=== PATIENT | male | born 1970 | race Caucasian/White ===

== ENCOUNTER 2022-07-01 06:33 | Day surgery (SDC) | payer BC ==
[2022-06-29 10:36] LABS: SARS-CoV-2 Antigen Rapid Res Negative (Negative)
[2022-07-01] MEDS ORDERED: Ringers Lactate 1,000 ML IV ONE (06:59)
[2022-07-01] MEDS ORDERED: EPINEPHRINE/PF 1 MG/ML AMP ONE (07:09)
[2022-07-01 07:18] VITALS: O2SAT 100
[2022-07-01] MEDS ORDERED: LIDOCAINE 1% MPF 5 ML VIAL ONE (07:26)
[2022-07-01] MEDS ORDERED: propofoL 200 MG/20 ML VIAL IV ONE (07:26)
[2022-07-01] MEDS ORDERED: MIDAZOLAM HCL 2 MG/2 ML INJ ONE (08:03)
--- NOTE | 2022-07-01 08:09 | ENDO RPT ---
[address], [address] EGD PROCEDURE REPORT EXAM DATE: 07/01/2022 PATIENT NAME: Les Heaton MR#: [id number] BIRTHDATE: 1970 ATTENDING: Lobo Stahl Dr STATUS: outpatient CASINO CHANGE ATTENDANT: Geovanna Wright RN and Jayne Wright INDICATIONS: The patient is a 51 yr old Male here for an EGD due to iron deficiency anemia and GERD PROCEDURE PERFORMED: EGD with biopsy MEDICATIONS: Per Anesthesia. TOPICAL ANESTHETIC: none CONSENT: The patient understands the risks and benefits of the procedure and understands that these risks include, but are not limited to: sedation, allergic reaction, infection, perforation and/or bleeding. Alternative means of evaluation and treatment include, among others: physical exam, x-rays, and/or surgical intervention. The patient elects to proceed with this endoscopic procedure. DESCRIPTION OF PROCEDURE: During intra-op preparation period all mechanical medical equipment was checked for proper function. Hand hygiene and appropriate measures for infection prevention was taken. Procedure, possible complications, and alternatives including but not limited to the possibility of bleeding, perforation, tear, infection, sepsis, need for surgery, need for blood transfusion, and anesthesia related complications were explained to the patient. After the risks, benefits and alternatives of the procedure were thoroughly explained, Informed consent was verified, confirmed and timeout was successfully executed by the treatment team. The patient was placed in the left lateral position. The patient was anesthetized with topical anesthesia. Through the anesthetized oropharyngeal area, the scope was passed without any difficulty. The EC-3890Li ([id number]) and Pentax EG-2990i ([id number]) endoscope was introduced through the mouth and advanced to the third portion of the duodenum. Retroflexed views revealed a moderate sized hiatal hernia. The gastroscope was then slowly withdrawn and removed. A moderate sized hiatal hernia was found. Mild gastritis was found in the antrum. Multiple biopsies were obtained and sent to pathology. Small bowel biopsies obtained with history of iron deficiency anemia. ADVERSE EVENTS: There were no complications. IMPRESSIONS: 1. Moderate sized hiatal hernia 2. Mild gastritis in the antrum, s/p biopsies 3. Small bowel biopsies obtained with history of iron deficiency anemia RECOMMENDATIONS: 1. await biopsy results 2. acid suppression therapy REPEAT EXAM: Lobo Stahl Dr eSigned: Lobo Stahl Dr 07/01/2022 8:08 AM cc: CPT CODES: ICD9 CODES: PATIENT NAME: Les Heaton MR#: [id number]
--- NOTE | 2022-07-01 09:16 | ENDO RPT ---
[address], [address] COLONOSCOPY PROCEDURE REPORT EXAM DATE: 07/01/2022 PATIENT NAME: Les Heaton MR #: [id number] BIRTHDATE: 1970 ATTENDING: Lobo Stahl Dr STATUS: outpatient OIL PROCESS STILLMAN: Geovanna Wright RN and Jayne Wright INDICATIONS: The patient is a 51 yr old Male here for a colonoscopy due to hematochezia and iron deficiency anemia PROCEDURE PERFORMED: Colonoscopy with snare polypectomy and Colon w/ endoclip MEDICATIONS: Per Anesthesia. ESTIMATED BLOOD LOSS: None CONSENT: The patient understands the risks and benefits of the procedure and understands that these risks include, but are not limited to: sedation, allergic reaction, infection, perforation and/or bleeding. Alternative means of evaluation and treatment include, among others: physical exam, x-rays, and/or surgical intervention. The patient elects to proceed with this endoscopic procedure. DESCRIPTION OF PROCEDURE: During intra-op preparation period all mechanical medical equipment was checked for proper function. Hand hygiene and appropriate measures for infection prevention was taken. Procedure, possible complications, alternatives including, but not limited to possibility of bleeding, perforation, tear, infection, sepsis, need for surgery, need for blood transfusion, were explained to the patient. After the risks, benefits and alternatives of the procedure were thoroughly explained, Informed consent was verified, confirmed and timeout was successfully executed by the treatment team. The patient was placed in the left lateral position. A digital rectal exam was performed and revealed no abnormalities of the perianal region. After appropriate level of anesthesia, the scope was passed. The EC-3890Li ([id number]) and EG-2990i ([id number]) endoscope was introduced through the anus and advanced to the terminal ileum which was intubated for a short distance. The quality of the prep was good. The instrument was then slowly withdrawn as the colon was fully examined. Scope withdrawal time was 12 minutes. COLON FINDINGS: A half circumferential fungating mass, measuring 4.0 X 1.5 cm in size, was found in the descending colon. Multiple biopsies of the lesion were performed using cold forceps. A pedunculated polyp measuring 1.2 cm in size with a friable surface was found in the sigmoid colon. A polypectomy was performed using snare cautery. A fungating pedunculated polyp measuring 2.0 cm in size was found in the rectum. A polypectomy was performed using snare cautery. The wound at the site was closed by placing hemoclips. One (1) placement was made. One (1) placement was made. A sessile polyp measuring 8 mm in size with a friable surface was found in the rectum. A polypectomy was performed using snare cautery. Mild diverticulosis was noted throughout the entire examined colon. No bleeding was noted from the diverticulosis. Small internal hemorrhoids were found. Retroflexed views revealed small hemorrhoids. The scope was then completely withdrawn from the patient and the procedure terminated. ADVERSE EVENTS: There were no complications. IMPRESSIONS: 1. Half circumferential mass, measuring 4.0 X 1.5 cm in size, in the descending colon; multiple biopsies of the lesion 2. Pedunculated polyp measuring 1.2 cm in size in the sigmoid colon; polypectomy was performed using snare cautery 3. Pedunculated polyp measuring 2.0 cm in size in the rectum; polypectomy was performed using snare cautery; the wound at the site was closed by placing hemoclips 4. 8 mm sessile polyp in the rectum; polypectomy was performed using snare cautery 5. Mild diverticulosis throughout the entire examined colon 6. Small internal hemorrhoids 7. Intubation to terminal ileum RECOMMENDATIONS: 1. await biopsy results 2. avoid NSAIDS for 2 weeks RECALL: Return in 1 year(s) for Colonoscopy. Lobo Stahl Dr eSigned: Lobo Stahl Dr 07/01/2022 9:16 AM cc: CPT CODES: ICD9 CODES: 1. 239.0 Neoplasm of unspecified nature of digestive system 2. 211.3 Benign neoplasm of colon 3. 569.0 Anal and rectal polyp PATIENT NAME: Les Heaton MR#: [id number]
--- NOTE | 2022-07-01 09:23 | ENDO RPT ---
[address], [address] COLONOSCOPY PROCEDURE REPORT EXAM DATE: 07/01/2022 PATIENT NAME: Lse Heaton MR #: [id number] BIRTHDATE: 1970 ATTENDING: Lobo Stahl Dr STATUS: outpatient UNISAW OPERATOR: Geovanna Wright RN and Jayne Wright INDICATIONS: The patient is a 51 yr old Male here for a colonoscopy due to hematochezia and iron deficiency anemia PROCEDURE PERFORMED: Colonoscopy with snare polypectomy and Colon w/ endoclip MEDICATIONS: Per Anesthesia. ESTIMATED BLOOD LOSS: None CONSENT: The patient understands the risks and benefits of the procedure and understands that these risks include, but are not limited to: sedation, allergic reaction, infection, perforation and/or bleeding. Alternative means of evaluation and treatment include, among others: physical exam, x-rays, and/or surgical intervention. The patient elects to proceed with this endoscopic procedure. DESCRIPTION OF PROCEDURE: During intra-op preparation period all mechanical medical equipment was checked for proper function. Hand hygiene and appropriate measures for infection prevention was taken. Procedure, possible complications, alternatives including, but not limited to possibility of bleeding, perforation, tear, infection, sepsis, need for surgery, need for blood transfusion, were explained to the patient. After the risks, benefits and alternatives of the procedure were thoroughly explained, Informed consent was verified, confirmed and timeout was successfully executed by the treatment team. The patient was placed in the left lateral position. A digital rectal exam was performed and revealed no abnormalities of the perianal region. After appropriate level of anesthesia, the scope was passed. The EC-3890Li ([id number]) and EG-2990i ([id number]) endoscope was introduced through the anus and advanced to the terminal ileum which was intubated for a short distance. The quality of the prep was good. The instrument was then slowly withdrawn as the colon was fully examined. Scope withdrawal time was 12 minutes. COLON FINDINGS: A half circumferential fungating mass, measuring 4.0 X 1.5 cm in size, was found in the descending colon. Multiple biopsies of the lesion were performed using cold forceps. A pedunculated polyp measuring 1.2 cm in size with a friable surface was found in the sigmoid colon. A polypectomy was performed using snare cautery. A fungating pedunculated polyp measuring 2.0 cm in size was found in the rectum. A polypectomy was performed using snare cautery. The wound at the site was closed by placing hemoclips. One (1) placement was made. One (1) placement was made. A sessile polyp measuring 8 mm in size with a friable surface was found in the rectum. A polypectomy was performed using snare cautery. Mild diverticulosis was noted throughout the entire examined colon. No bleeding was noted from the diverticulosis. Small internal hemorrhoids were found. Retroflexed views revealed small hemorrhoids. The scope was then completely withdrawn from the patient and the procedure terminated. ADVERSE EVENTS: There were no complications. IMPRESSIONS: 1. Half circumferential mass, measuring 4.0 X 1.5 cm in size, in the descending colon; multiple biopsies of the lesion 2. Pedunculated polyp measuring 1.2 cm in size in the sigmoid colon; polypectomy was performed using snare cautery 3. Pedunculated polyp measuring 2.0 cm in size in the rectum; polypectomy was performed using snare cautery; the wound at the site was closed by placing hemoclips 4. 8 mm sessile polyp in the rectum; polypectomy was performed using snare cautery 5. Mild diverticulosis throughout the entire examined colon 6. Small internal hemorrhoids 7. Intubation to terminal ileum RECOMMENDATIONS: 1. await biopsy results 2. avoid NSAIDS for [address] chest/abdomen/pelvis 4. CEA level RECALL: Return in 1 year(s) for Colonoscopy. Lobo Stahl Dr eSigned: Lobo Stahl Dr 07/01/2022 9:22 AM Revised: 07/01/2022 9:22 AM cc: CPT CODES: ICD9 CODES: 1. 239.0 Neoplasm of unspecified nature of digestive system 2. 211.3 Benign neoplasm of colon 3. 569.0 Anal and rectal polyp PATIENT NAME: Les Heaton MR#: [id number]
[2022-07-01 09:39] VITALS: BP 111/83; TEMP 97.4
--- NOTE | 2022-07-01 14:30 | RAD REPORT ---
EXAM DESCRIPTION: CT - Chest Abdomen Pelvis W Cont - 07/01/2022 10:54 am CLINICAL HISTORY: post colonoscopy, mass found on colonoscopy COMPARISON: No comparisons TECHNIQUE: Following dynamic enhancement using 100 milliliters nonionic IV contrast, axial imaging o f the chest, abdomen and pelvis was performed. Biphasic technique was utilized through the abdomen. Additional 10 minute delayed imaging through the abdomen performed. Oral contrast was administered. All CT scans are performed using dose optimization technique as appropriate and may include automated exposure control or mA/KV adjustment according to patient size. FINDINGS: A 2 mm calcified granuloma seen in the anterior apex of no clinical concern. There is a 5 mm date noncalcified juxtapleural nodule along the anterior aspect of the minor fissure (series 5, im age 37). An additional 5 mm vague noncalcified nodule is seen in the lateral right lower lobe (series 5, image 40) No pleural effusion, pleural thickening or pneumothorax. No significant aortic or pulmonary arterial tree finding. Mediastinal and hilar regions show no mass or abnormal lymphadenopathy. No chest wall m ass or axillary lymphadenopathy. Degenerative and scoliotic changes are present in the spine. No lyti c or blastic thoracic vertebral body or rib lesion identified. The liver, spleen and pancreas show no suspicious findings. Gallbladder and biliary tree are unremark able. Gallstones can be occult on CT imaging. In the anterior mid and lower pole of the left kidney there is a 5.5 centimeter diameter heterogeneou s Godwin enhancing solid mass. Remainder of the left kidney shows a normal cortical and medullary enhanc ement pattern that is symmetric with the right kidney. No contralateral right renal mass. There is no hydronephrosis. No left renal vein thrombus present. There is no abnormal periaortic lymphadenopathy . No stranding or edema in the perinephric fat. No adrenal abnormalities. No urinary bladder abnormal ity. Prostate gland and seminal vesicles show no suspicious findings. No gastric dilatation or gastric wall thickening. No small bowel abnormality identified. Ileocecal va lve has slightly lobulated fatty contour commonly seen. Available history indicated 1 or more polypectomies performed during the colonoscopy earlier in the d ay. History indicates biopsy performed of a descending colon mass. On today's study the clip is present near the rectosigmoid junction. A 3 x 1.5 cm soft tissue density is present in the posterior mid rectum possibly retained stool. This is in proximity to the biopsy c lip. Correlation can be made with any findings in the rectum portion of the colonoscopy. There is a m ild circumferential wall thickening in the proximal sigmoid colon where the patient has diverticulosi s. This may be chronic diverticulosis changes or peristalsis. In the descending colon there is no aron brandt defined mass by CT criteria. In the left-side of the transverse colon near the splenic flexure t here is circumferential soft tissue density. This is more pronounced than the areas of probable peris taltic narrowing seen elsewhere in the colon. This is possibly the mass referred as a descending colo n mass. There is no adjacent abnormal mass or lymphadenopathy seen. Scattered throughout the mesenter ies are few small nonspecific sub centimeter size lymph nodes. No omental thickening. No free air or free fluid. No abnormal aorto iliac lymphadenopathy. A punctate 2 mm sclerotic focus is present in the left ilium near the SI joint. Lower lumbar facet arthur int degenerative changes are present. No pathologic changes in the lumbar spine or pelvis identifiabl e. Mild left convex curvature of the lumbar spine present. No significant vascular findings. IMPRESSION: A 5.5 centimeter left renal heterogeneous enhancing mass present in the mid and lower po le.Renal cell carcinoma is the single most likely etiology. There is no renal vein thrombus or adjace nt lymphadenopathy. Circumferential soft tissue density is present in the left-side of the transverse colon near the sple pino flexure. This is slightly more prominent than the usual peristalsis artifact. This is possibly th e correlate to the historically stated descending colon mass. Wall thickening or mass of the descending colon is not confirmed on this study. There is wall thicken ing in the proximal sigmoid colon with the patient has diverticulosis. This could be chronic change f rom diverticulosis. This finding is also possibly the mass referred to as descending colon in locatio n. Surgical clip is present in the rectum. There is soft tissue density posterior rectum that looks more like stool than mass. All of these 3 colon findings need correlation with the colonoscopy performed earlier in the day. The patient has 2 small 5 mm noncalcified pulmonary nodules in the right lung field as detailed. Thes e are too small for further characterization by PET imaging and too small for biopsy. These can be mo nitored on serial imaging. No liver lesions are present. There is no abnormal lymphadenopathy. Patient has a few small sub centi meter scattered nonspecific mesenteric lymph nodes. Scoliosis and degenerative changes are present. A pathologic bone process is not suspected.
== END 2022-07-01 09:30 | disposition home or self-care (01) ==
LOC: OR 06:33
PROVIDERS: ATTEND Internal Medicine Gastroenterology
PROC: 0DBN8ZX Excision of Sigmoid Colon, Via Natural or Artificial Opening Endoscopic, Diagnostic (ICD-10-PCS; 2022-07-01)
PROC: 0DBM8ZX Excision of Descending Colon, Via Natural or Artificial Opening Endoscopic, Diagnostic (ICD-10-PCS; 2022-07-01)
PROC: 0DB88ZX Excision of Small Intestine, Via Natural or Artificial Opening Endoscopic, Diagnostic (ICD-10-PCS; 2022-07-01)
PROC: 0DB68ZX Excision of Stomach, Via Natural or Artificial Opening Endoscopic, Diagnostic (ICD-10-PCS; principal; 2022-07-01 07:30)
PROC: 0DBP8ZX Excision of Rectum, Via Natural or Artificial Opening Endoscopic, Diagnostic (ICD-10-PCS; 2022-07-01 07:30)
DX: D64.9 Anemia, unspecified (principal); K92.1 Melena; K21.9 Gastro-esophageal reflux disease without esophagitis; I10 Essential (primary) hypertension; E78.5 Hyperlipidemia, unspecified; K57.92 Diverticulitis of intestine, part unspecified, without perforation or abscess without bleeding; K64.8 Other hemorrhoids; K64.4 Residual hemorrhoidal skin tags; Z20.822 Contact with and (suspected) exposure to COVID-19
CPT/HCPCS: 36415 ×2; 88312; 88305; 82378; 71260; 74177; 87811; 43239; 45385; 45380; Q9967; J2704; J0171; J2250; J7120

== ENCOUNTER 2022-07-17 06:35 | Inpatient (IN) | payer BC ==
--- NOTE | 2022-07-10 13:57 | EKG ---
Test Date: 2022-07-10 Test Time: 13:49:13 Insert Operator: NATALIA MEASUREMENT RESULTS: Intervals: Rate: 65 WV: 134 QRSD: 98 QT: 394 QTc: 409 Sutter: P: 63 WV: 134 QRS: 72 T: 58 INTERPRETIVE STATEMENTS: Normal sinus rhythm Normal ECG Compared to ECG 11/06/2006 06:48:20 Sinus bradycardia no longer present Left ventricular hypertrophy no longer present Early repolarization no longer present Electronically Signed On 07-10-22 13:57:[address] Ramirez
[2022-07-10 14:06] LABS: Absolute Lymphocytes (CBC) 1.1 K/uL (0.7-4.9); Lymphocytes % 21.4 % (15.3-44.8); MCV 81.4 fL (80-100); MPV 6.1 fL (7.6-11.3)
--- NOTE | 2022-07-10 14:08 | RAD REPORT ---
EXAM DESCRIPTION: RAD - Chest Pa And Lat (2 Views) - 07/10/2022 1:59 pm CLINICAL HISTORY: PRE-OP Chest pain. COMPARISON: No comparisons FINDINGS: The lungs are clear. The heart is normal in size. No displaced fractures. Moderate thoraci c dextroscoliosis.
[2022-07-10 14:29] LABS: Protime INR 1.02
[2022-07-10 14:37] LABS: Potassium 4.3 mmol/L (3.5-5.1)
[2022-07-10 14:49] LABS: Urine Bilirubin NEGATIVE (Negative); Urine Blood Negative (Negative); Urine Clarity Clear (Clear); Urine Color Yellow (Yellow); Urine Glucose NEGATIVE (Negative); Urine Protein NEGATIVE (Negative); Urine Urobilinogen Normal (Normal)
[2022-07-15 09:27] LABS: SARS-CoV-2 Antigen Rapid Res Negative (Negative)
[~2022-07-17 06:35] MED LIST: NEOMYCIN SULFATE 500 MG TAB PO SCH
[2022-07-17] MEDS ORDERED: METRONIDAZOLE 500mg IVPB 500 MG/100 ML BAG IV ONE (07:00)
[2022-07-17] MEDS ORDERED: Ringers Lactate 1,000 ML IV ONE ×5 (07:06→11:13)
[2022-07-17] MEDS ORDERED: CEFOXITIN SODIUM 1 GM/VIAL ONE (07:06)
[2022-07-17] MEDS ORDERED: NS 0.9% VIAL 10 ML ONE ×3 (07:24→08:47)
[2022-07-17] MEDS ORDERED: propofoL 200 MG/20 ML VIAL IV ONE (07:24)
[2022-07-17] MEDS ORDERED: FENTANYL CITR 250 MCG/5 ML ONE ×2 (07:24→09:51)
[2022-07-17] MEDS ORDERED: MIDAZOLAM HCL 2 MG/2 ML INJ ONE (07:24)
[2022-07-17] MEDS ORDERED: VECURONIUM 10 MG/VIAL IV ONE ×2 (07:24→07:33)
[2022-07-17] MEDS ORDERED: LIDOCAINE 1% MPF 5 ML VIAL ONE (07:24)
[2022-07-17] MEDS ORDERED: BUPIVACAINE 0.5% Inj,MDV 50 mL VIAL ONE (07:27)
[2022-07-17] MEDS ORDERED: NA CHLORIDE 0.9% 500 ML ONE (07:34)
[2022-07-17] MEDS ORDERED: HEPA 1000U/500MLS 1,000 UNIT/500 ML BAG IV ONE (07:35)
[2022-07-17] MEDS ORDERED: Phenylephrine HCl 10 MG/ML 1 ML VIAL ONE (08:01)
[2022-07-17] MEDS ORDERED: GLYCOPYRROLATE 0.2 MG/ML SYR ONE ×2 (08:03→12:48)
[2022-07-17] MEDS ORDERED: EPHEDRINE SULF 50 MG/ML VIAL ONE ×2 (08:06→08:47)
[2022-07-17] MEDS ORDERED: dexAMETHasone 10 MG/ML VIAL ONE (09:21)
[2022-07-17] MEDS ORDERED: KETOROLAC 30 MG/ML INJ ONE (09:21)
[2022-07-17] MEDS ORDERED: ONDANSETRON 4 MG/2 ML VIAL ONE ×2 (09:22→14:06)
[2022-07-17] MEDS ORDERED: NEOSTIGMINE 1 MG/ML -10 ML VIAL ONE (12:56)
[2022-07-17] MEDS ORDERED: Mastisol Adhesive Liq ONE (12:56)
[2022-07-17] MEDS ORDERED: MORPHINE SULFATE/PF 1 MG/ML (10 ML AMP) ONE (12:59)
[2022-07-17] MEDS ORDERED: SODIUM CHLORIDE 0.9% 10ML INJ IV PRN (13:18)
[2022-07-17] MEDS ORDERED: ONDANSETRON 4 MG/2 ML VIAL IV PRN (13:18)
--- NOTE | 2022-07-17 13:45 | P.OP ---
Date of Service: 07/17/22 Preop diagnosis: Colon cancer Postop diagnosis: Same Procedure performed: Exploratory laparotomy, segmental colon resection with primary anastomosis. A laparoscopic left nephrectomy was performed by Dr. Stauffer prior to us performing the colon resection. Surgeon: Arnaud Morris MD Marketing Agent: Eileen MOSER Estimated blood loss: Minimal Specimen: Transverse colon Findings: Margins 6 cm and tumor within the specimen Anesthesia: General Complications: None Drains: None Fluids and blood products: Not applicable Disposition: Recovery room Brief history: Patient is a 51-year-old gentleman with distal transverse colon cancer and left renal cell carcinoma. Patient also had a polypectomy in the rectum which showed high-grade dysplasia with margins that were free. Case was discussed with Dr. Escudero as well as Dr. Stauffer. Patient was scheduled to have a laparoscopic left nephrectomy by Dr. Stauffer first and then I would proceed with a segmental colon resection. Informed consent from the patient was obtained. Patient and family understood risks, benefits and alternatives. Operative note: After Dr. Stauffer was done with his case, patient was positioned in the supine position. Abdomen was been prepped and draped in the usual standard fashion. A upper midline incision was made from the epigastrium to just below the umbilicus. Subcutaneous tissue identified and divided. Bleeding controlled with cautery. Peritoneal cavity entered with sharp and blunt dissection. The Endo Catch bag containing the kidney was removed and sent to pathology. Then a full exploratory laparotomy was performed. Patient had a normal GE junction, normal stomach, normal duodenal sweep, normal jejunum, normal ileum, normal cecum, normal ascending colon, proximal and mid transverse colon. In the distal transverse colon, which had been dissected by , there was a palpable mass approximately 4 cm in diameter. The remainder of the transverse colon, descending colon, sigmoid colon and rectum were within normal limits. There was some diverticulosis noted in the sigmoid colon. There were no other evidence of disease identified. The liver and gallbladder were within normal limits. At this time the proximal and middle transverse colon was mobilized. LigaSure was utilized to take the omental adhesions away from the transverse colon. Splenic flexure was taken down by Dr. Stauffer. The left side of the colon was also dissected free by Dr. Stauffer while he was performing the left nephrectomy. Then, at approximately 5 cm distal and proximal margins, Endo LISANDRO stapling device was used to divide the colon. The LigaSure was used to dissect the mesentery all the way down to the base of the mesenteric vessels. Entire specimen was labeled appropriately and sent to pathology. Specimen was examined by the pathologist and found to have 6 cm margins on either side. At this time a standard [id number] antimesenteric anastomosis was performed with stapling device and the open segment was closed with transverse stapling device. There was a 3-0 silk suture placed to take the tension off the anastomosis. Mesenteric defect was closed with 3-0 chromic suture. Subsequently, all counts were correct. Then the left upper quadrant and left abdomen was irrigated. There was no evidence of bleeding or bowel injury appreciated. Subsequently, the midline fascia was closed with #2 nylon suture. Subcutaneous wounds was irrigated and bleeding controlled with cautery. 3-0 chromic used to approximate subcutaneous tissue and close skin. Sterile dressing applied. Patient awakened after anesthesia performed a spinal for postop pain control. Then patient taken to recovery room in good general condition. CC: Dr. Escudero's office, Dr. Stauffer office
[2022-07-17] MEDS ORDERED: HYDROMORPHONE HCL 1 MG/ML INJ ONE ×2 (14:07→14:34)
[2022-07-17 14:42] LABS: Absolute Lymphocytes (CBC) 0.4 K/uL (0.7-4.9); Hematocrit 26.1 % (39.6-49.0); Lymphocytes % 2.2 % (15.3-44.8); MCV 78.1 fL (80-100); MPV 6.2 fL (7.6-11.3); RBC Red Blood Cell Count 3.34 M/uL (4.33-5.43)
--- OUTSIDE RECORDS SUMMARY | 2022-07-17 16:17 | XMS REPORT | Continuity of Care Document ---
:[address] [facility] t Address [address] [place] [address] Care Team Providers Name Role Phone Pcp, Patient Does Not Have A Primary Care Physician [id number] Alexandro Quintero Attending Clinician Unavailable Anika Foster PA-C Attending Clinician ANIKA FOSTER Attending Clinician Unavailable Doctor Unassigned, Fults Attending Clinician Unavailable SARAH RENAE Attending Clinician Unavailable ALFONSO LERNER Attending Clinician Unavailable Payers Payer Name Policy Type Policy Number Effective Date Expiration Date S ource Problems Condition Condition Condition Status Onset Resolution Last Treating Co mments Source Name Details Category Date Date Treatment Clinician Date No known No known Disease Unive rs active active ity of problems problems [facility] Allergies, Adverse Reactions, Alerts Allergy Allergy Status Severity Reaction(s) Onset Inactive Treating Comm ents Source Name Type Date Date Clinician NO KNOWN Drug Active Univers ALLERGIE Class ity of S [facility] Social History Social Habit Start Date Stop Date Quantity Comments Source Exposure to Not sure [facility] SARS-CoV-2 (event) Medica l Branch Tobacco use and 2021-08-10 2021-08-10 Never used [facility] exposure 00:00:00 00:00:00 [facility] Sex Ass[birth year] At [birth year] [facility] 00:00:00 00:00:00 Medical [place] Smoking Status Start Date Stop Date Source Unknown if ever smoked [facility] Never smoker [facility] Medications Ordered Filled Start Stop Current Ordering Indication Dosage Frequency Signature Comments Components Source Medication Medication Date Date Medication? Clinician (SIG) Name Name cyclobenzap 2020-11 Yes [id number] 10mg Take 1 Univers rine 10 mg 0-03 tablet by ity of tablet 00:00: mouth 3 [place] 00 (three) Medical times Branch daily. ibuprofen 2020-11 Yes [id number] 800mg Take 1 Univers 800 mg 0-03 tablet by ity of tablet 00:00: mouth 3 (three) Medical times Branch daily with meals. cyclobenzap 2020-11 Yes [id number] 10mg Take 1 Univers rine 10 mg 0-03 tablet by ity of tablet 00:00: mouth 3 [place] (three) Medical times Branch daily. ibuprofen 2020-11 Yes [id number] 800mg Take 1 Univers 800 mg 0-03 tablet by ity of tablet 00:00: mouth 3 [place] (three) Medical times Branch daily with meals. omeprazole 0 Yes Univers 40 mg 9-21 ity of capsule 00:00: [place] [facility] omeprazole 2020-0 Yes Univers 40 mg 9-21 ity of capsule 00:00: [place] [facility] losartan 2020-0 Yes Univers 100 mg 9-16 ity of tablet 00:00: [place] [facility] atorvastati 2020-0 Yes Univer s n 10 mg 9-16 ity of tablet 00:00: [place] [facility] Branch DULoxetine 2020-0 Yes Univers 60 mg 9-16 ity of capsule 00:00: [place] [facility] losartan 1-0 Yes Univers 100 mg 9-16 ity of tablet 00:00: [place] [facility] atorvastati 2020-0 Yes Univer s n 10 mg 9-16 ity of tablet 00:00: [address] DULoxetine 2020-0 Yes Univers 60 mg 9-16 ity of capsule 00:00: [address] Immunizations Ordered Filled Immunization Date Status Comments Sour e Immunization Name Name SARS-COV-2 COVID-19 2021-03-08 Completed Unive rsity of PFIZER VACCINE 00:00:00 [facility] SARS-COV-2 COVID-19 2021-03-08 Completed Unive rsity of PFIZER VACCINE 00:00:00 [facility] SARS-COV-2 COVID-19 2021-03-08 Completed Unive rsity of PFIZER VACCINE 00:00:00 [facility] SARS-COV-2 COVID-19 2021-02-15 Completed Unive rsity of PFIZER VACCINE 00:00:00 [facility] SARS-COV-2 COVID-19 2021-02-15 Completed Unive rsity of PFIZER VACCINE 00:00:00 [facility] SARS-COV-2 COVID-19 2021-02-15 Completed Unive rsity of PFIZER VACCINE 00:00:00 [facility] Vital Signs Vital Name Observation Time Observation Value Comments Source Systolic blood 2021-08-10 14:27:00 134 mm[Hg] Univer sity of pressure [facility] Diastolic blood 2021-08-10 14:27:00 90 mm[Hg] Unive rsity of pressure [facility] Heart rate 2021-08-10 14:27:00 87 /min [facility] Body temperature 2021-08-10 14:27:00 37.06 [facility] rate 2021-08-10 14:27:00 16 /min [facility] Body height 2021-08-10 14:27:00 185.4 cm [facility] Body weight 2021-08-10 14:27:00 81.647 kg [facility] BMI 2021-08-10 14:27:00 23.75 kg/m2 [facility] Oxygen saturation in 2021-08-10 14:27:00 100 /min [facility] Arterial blood by [facility] Pulse oximetry Branch Procedures Procedure Date / Time Performed Performing Clinician [facility] e ASSIGNMENT OF BENEFITS 2021-08-10 14:08:31 Doctor Unassigned, No [facility] Encounters Start End Encounter Admission Attending Care Care Encounter Source Date/Time Date/Time Type Type Clinicians Facility Department ID 2022-07-15 [facility]01 [facility] 2022-07-09 Outpatient Leon [facility] Common 17:50:00 [facility] 2021-12-03 Outpatient Quintero, STLMLC STLMLC Common 13:39:16 Alexandro [id number] [facility] 2021-12-03 Outpatient Quintero, STLMLC STLMLC Common 12:54:16 Alexandro [id number] [facility] 2021-12-03 Outpatient Quintero, STLMLC STLMLC Common 12:52:59 Alexandro [id number] [facility] 2021-12-03 Outpatient Quintero, STLMLC STLMLC Common 12:41:27 Alexandro [id number] [facility] 2022-07-09 2022-07-09 ambulatory STLMLC STLMLC [id number] Common 00:00:00 00:00:00 [facility] 2022-07-06 2022-07-06 ambulatory STLMLC STLMLC [id number] Common 00:00:00 00:00:00 [facility] 2022-07-06 2022-07-06 ambulatory STLMLC STLMLC [id number] Common 00:00:00 00:00:00 [facility] 2022-06-11 2022-06-11 ambulatory STLMLC STLMLC [id number] Common 00:00:00 00:00:00 [facility] 2022-06-10 2022-06-10 ambulatory STLMLC STLMLC [id number] Common 00:00:00 00:00:00 [facility] 2022-05-13 2022-05-13 ambulatory STLMLC STLMLC [id number] Common 00:00:00 00:00:00 [facility] 2022-01-19 2022-01-19 ambulatory STLMLC STLMLC [id number] Common 00:00:00 00:00:00 [facility] 2021-12-23 2021-12-23 ambulatory STLMLC STLMLC [id number] Common 00:00:00 00:00:00 [facility] 2021-08-10 2021-08-10 [facility] [id number] Univers 09:11:03 09:51:28 Care AnikaCytoSolv [id number] it y of [place] [id number] Laz as Jose?Blea [phone] [address] Medical Office Building 2021-08-10 2021-08-10 Outpatient Randolph FOSTER [facility] [id number] Univers 09:40:00 09:40:00 ANIKA ity [facility] 2021-08-10 2021-08-10 Orders Doctor LEA [id number] Univers 00:00:00 00:00:00 Only Unassigned, ANAYELI [id number] [facility] [id number] Laz as [phone] [address] 2021-08-10 2021-08-10 Telephone Cristian VAANKUR [id number] Univers 00:00:00 00:00:00 AnikaCytoSolv [id number] it y of [place] [id number] Laz as Jose?Blea [phone] [address] Medical Office [facility] 2021-07-29 2021-07-29 Outpatient STLMLC STLMLC [id number] Common 00:00:00 00:00:00 [facility] 2021-06-25 2021-06-25 Outpatient STLMLC STLMLC [id number] Common 00:00:00 00:00:00 [facility] 2021-03-31 2021-03-31 Outpatient STLMLC STLMLC [id number] Common 00:00:00 00:00:00 [facility] 2021-03-26 2021-03-26 Outpatient STLMLC STLMLC [id number] Common 00:00:00 00:00:00 [facility] 2021-03-08 2021-03-08 Outpatient Randolph RENAE [facility] [id number] Univers 09:10:00 08:51:28 SARAH faye [facility] 2021-02-25 2021-02-25 Outpatient STLMLC STLMLC [id number] Common 00:00:00 00:00:00 [facility] 2021-02-15 2021-02-15 Outpatient Randolph LERNER [facility] [id number] [facility] 09:20:00 09:03:07 ALFONSO nora [facility] 2021-02-04 2021-02-04 Outpatient STLMLC STLMLC [id number] Common 00:00:00 00:00:00 [facility] 2021-01-22 2021-01-22 Outpatient STLMLC STLMLC [id number] Common 00:00:00 00:00:00 [facility] Results This patient has no known results.
[2022-07-17] MEDS ORDERED: NA CHLORIDE 0.9% 250 ML ONE (17:04)
[2022-07-17] MEDS: METRONIDAZOLE 500mg IVPB 500 MG/100 ML BAG IV SCH ×2 (18:35→23:22)
[2022-07-17] MEDS: CEFOXITIN 1 GM in NA CHLORIDE 0.9% 50 ML IVPB SCH ×2 (18:36→23:00)
[2022-07-17] MEDS: HYDROMORPHONE HCL 1 MG/ML INJ IV PRN (19:00)
[2022-07-17 19:56] VITALS: BMI 22.3
[2022-07-17] MEDS: NA CHLORIDE 0.9% 1,000 ML IV SCH ×2 (20:18→22:00)
[2022-07-17 20:20] LABS: Absolute Lymphocytes (CBC) 0.3 K/uL (0.7-4.9); Hematocrit 28.2 % (39.6-49.0); Lymphocytes % 1.4 % (15.3-44.8); MCV 78.5 fL (80-100); MPV 6.1 fL (7.6-11.3); RBC Red Blood Cell Count 3.59 M/uL (4.33-5.43)
[2022-07-17 20:35] LABS: Potassium 4.7 mmol/L (3.5-5.1)
[2022-07-18] MEDS: HYDROMORPHONE HCL 1 MG/ML INJ IV PRN ×2 (02:09→19:38)
--- NOTE | 2022-07-18 04:22 | OP ---
Surgeon: ABDIEL DEWITT Urology operative note combined surgery with General Surgery and Dr. Morris. Preoperative Diagnosis: Left renal mass of 5.8 cm. Postoperative Diagnosis: Left renal mass of 5.8 cm. Principle Procedure: Left laparoscopic radical nephrectomy. Indication For Procedure: Mr. Heaton was being evaluated for colon cancer and underwent staging imaging , which revealed the presence of a centrally enhancing 5.8 cm left renal mass. He subsequently under went an MRI, which confirmed the absence of any macroscopic fat components that were visible and thus the mass had 88% risk of being renal cell. Because he was going to require a resection of his colon and the kidney had a high likelihood of being renal cell, he elected to undergo a combined approach with the nephrectomy performed laparoscopically followed by an open partial colectomy. Procedure In Detail: The patient was consented in the preoperative holding area before being transfe rred to the operative suite where general anesthesia was induced. An NG tube was placed for gastric decompression and pneumo boots were provided for DVT prophylaxis. An arterial line was also placed. The patient was placed in the modified decubitus position with the left side up and a neuro roll was placed beneath his left flank and an axillary roll was placed beneath his right axilla. His abdomen was shaved and a urethral Meadows catheter was placed. It was then prepped with ChloraPrep and then d raped in standard fashion. Of note, a test roll was performed to confirm the patient was stable in t he modified flank position. The case was then begun using a Veress needle to gain intraabdominal acc ess with appropriate pressures obtained on low-flow before increasing the gas installation rate to hi gh-flow where his abdomen did distend to 15 mmHg with ease. Then, using a 5 mm optical trocar insert ed in the periumbilical location, I made an incision and navigated the trocar through the fascial tis sues into his abdominal cavity. The abdominal cavity was surveyed, and there were no internal injuri es and no intraabdominal adhesions. The renal mass was noted to be bulging centrally from the kidney and displacing the colon medially near the splenic flexure. We then placed 2 additional trocars, 1 in the left lateral quadrant 12 mm trocar, and a 5 mm trocar in the upper midline. Eventually, an ad ditional 5 mm trocar was placed in the right upper quadrant and used to reflect the spleen and retrac janeth in position while the dissection was undertaken. The case was begun by incising the line of Told t and reflecting the colon off the anterior surface of Gerota's and proceeding up to the splenic flex ure where it was then released from some adhesions that had formed to the region of the hilum of the spleen. These adhesions were taken down and the entirety of the left hemicolon and a portion of the transverse colon had been appropriately reflected medially. I then continued to release the entirety of the mesentery off the surface of the kidney down until the aorta and IVC were visible. I then id entified the ureter and elevated it above the psoas muscle dissecting the tissues all the way to the lateral sidewall of his abdomen. This was then taken up to and towards the hilum. An accessory lowe r pole renal vessel was identified with significant caliber going into the lower pole. This was diss ected free and eventually ligated and divided using a 45 mm vascular load LISANDRO staple. I then continu ed the dissection superiorly and identified the renal vein, which was tripartite in anatomic distribu tion and superior to it was an additional renal artery. Between that artery that was visible and jus t adjacent to the superior border of the vein, an additional artery was found for a total of 3 renal arteries identified. The most superior renal artery was dissected and then ligated and divided using a 45 mm LISANDRO vascular load staple, and the main renal artery was also ligated and divided using a 45 mm vascular load LISANDRO staple. At this point, the kidney did turn blue and the vein did decompress, so I utilized a 60 mm vascular load LISANDRO staple to ligate the vein and divided. I then continued the di ssection posterior laterally and then superiorly along the anterior border of the kidney sparing the adrenal and taking it over to the superior lateral sidewall. I then turned my attention to the tail of Gerota's where the ureter and gonadal vessels had been elevated, and I utilized an additional 60 m m vascular load LISANDRO staple to divide and ligate the ureter and gonadal vessels and a portion of the t ail of Gerota's cirrhosis fascia and dividing it in between. Then, using the LigaSure device, I cont inued the release and dissection of the kidney from the sidewall and any posterior lateral attachment s until we reached the superior border of the kidney and the kidney was completely freed. It was the n placed into an EndoCatch bag and a careful search for any bleeding was performed with the intraabdo morteza pressure decreased to 8 mmHg. Each of the arteries was seen and observed to be pulsating, but ligated nicely with no ongoing bleeding, and the rest of the dissection site was completely free of a ny active bleeding. As a result, I removed the 5 mm trocars and the 12 mm left lateral quadrant troc ar was closed using a Joe-Abner device with a 0 Vicryl suture. Once this was successfully clos ed, that trocar was also removed, leaving only the periumbilical trocar in place with the EndoCatch b ag string emanating from it. I then removed that trocar and the string was left hanging outside of t he incision with the kidney within an EndoCatch bag inside of his body. I then turned the case over to Dr. Morris, who began the colon resection portion by extending the anterior midline incision betwee n the 5 mm trocar and the periumbilical trocar site previously made. Estimated blood loss for this component of the procedure is less than 10 cc. Discharge Disposition: He will be managed largely based on the colon and bowel resection pathway and discharged accordingly. Subsequent followup may be with me in the Urology Clinic in about 2 to 3 we eks time to discuss the results of the pathology. SHREYA/ZANDRA Voice ID: [id number] Report ID: [id number]
[2022-07-18] MEDS: CEFOXITIN 1 GM in NA CHLORIDE 0.9% 50 ML IVPB SCH (05:09)
[2022-07-18 05:21] LABS: Absolute Lymphocytes (CBC) 0.4 K/uL (0.7-4.9); Hematocrit 25.8 % (39.6-49.0); Lymphocytes % 3.2 % (15.3-44.8); MCV 78.7 fL (80-100); MPV 6.4 fL (7.6-11.3); RBC Red Blood Cell Count 3.28 M/uL (4.33-5.43)
[2022-07-18] MEDS: METRONIDAZOLE 500mg IVPB 500 MG/100 ML BAG IV SCH (05:37)
[2022-07-18] MEDS: NA CHLORIDE 0.9% 1,000 ML IV SCH ×3 (05:38→17:54)
[2022-07-18 05:46] LABS: Magnesium 1.9 mg/dL (1.8-2.4); Phosphorus 4.2 mg/dL (2.5-4.9); Potassium 4.4 mmol/L (3.5-5.1)
--- NOTE | 2022-07-18 09:44 | P.PN ---
Date of Service: 07/18/22 Subjective: Patient is awake and alert. Pain is well controlled. Patient had difficulty sleeping last night. Objective: Vitals stable, afebrile. White count was white count is 13.8 hemoglobin posttransfusion was 9.3 this morning it is 8.4. BUN and creatinine are 24 and 2.17. Abdomen: Soft, nondistended, hypoactive bowel sounds with minimal incisional tenderness Assessment: Status post left nephrectomy and segmental colon resection Plan: Patient is clinically stable and doing well. We will repeat an H&H this afternoon and if is trending down patient will require another unit of blood. Later today, if the patient remaines stable, he will be transferred to the floor. Will prescribe Ambien so patient can rest at night. CC:
[2022-07-18] MEDS ORDERED: DIPHENHYDRAMINE 50 MG/ML VIAL IV ONE ×2 (10:37→19:22)
[2022-07-18] MEDS: PANTOPRAZOLE 40 MG INJ IVP SCH (10:40)
[2022-07-18] MEDS: ENOXAPARIN 40 MG/0.4 ML SQ SCH (10:40)
[2022-07-18 14:07] LABS: Absolute Lymphocytes (CBC) 0.6 K/uL (0.7-4.9); Hematocrit 24.3 % (39.6-49.0); Lymphocytes % 5.4 % (15.3-44.8); MCV 78.3 fL (80-100); MPV 6.3 fL (7.6-11.3)
--- NOTE | 2022-07-18 17:06 | P.CNS ---
Date of Consult: 07/18/22 Reason for Consult: Assistance with medical management Requesting Physician: Arnaud Morris Chief Complaint: Patient here for partial colectomy and nephrectomy History of Present Illness: Patient is a 51-year-old gentleman who was admitted to the hospital for partial colectomy and a nephrectomy. Patient appears to have colon cancer with renal cell carcinoma. Pathology pending. Patient is clinically doing well. he has a history of hypertension. We will consult for medical management. Patient clinically is doing well postoperatively. Pain is minimal. Blood pressure is well controlled. NG tube is in place. Will continue to monitor patient closely. Allergies No Known Allergies Allergy (Verified 07/01/22 07:19) Home Medications: Atorvastatin Calcium [Lipitor*] 1 tab PO DAILY 06/29/22 Duloxetine [Cymbalta *] 1 tab PO DAILY 06/29/22 Losartan Potassium [Cozaar] 1 tab PO DAILY 06/29/22 - Past Medical/Surgical History Diabetic: No -: Hypertension -: high cholesterol -: ear tubes as child -: R elbow Sx for infected bursitis - Family History mom and dad Family History: Reviewed- Non-Contributory Notes: no history - Social History Smoking Status: Former smoker Alcohol use: No CD- Drugs: No Caffeine use: Yes Place of Residence: Home Review of Systems 10-point ROS is otherwise unremarkable Physical Examination Temp Pulse Resp BP Pulse Ox 98.1 F 61 12 105/61 99 07/18/22 12:00 07/18/22 13:00 07/18/22 12:00 07/18/22 13:00 07/18/22 13:00 General: Alert, In no apparent distress, Oriented x3 HEENT: Atraumatic, PERRLA, Mucous membr. moist/pink, Other (NGT in place), EOMI, Sclerae nonicteric Neck: Supple, 2+ carotid pulse no bruit, No LAD, Without JVD or thyroid abnormality Respiratory: Clear to auscultation bilaterally, Normal air movement Cardiovascular: Regular rate/rhythm, Normal S1 S2 Gastrointestinal: No tenderness, No rebound, No guarding, Absent bowel sounds Musculoskeletal: No clubbing, No swelling, No tenderness Integumentary: No rashes Neurological: Normal gait, Normal speech, Normal tone, Normal affect Lymphatics: No axilla or inguinal lymphadenopathy Laboratory Data (last 24 hrs) 07/18/22 13:39: WBC 12.00 H, Hgb 8.0 L, Hct 24.3 L, Plt Count 372 07/18/22 04:42: Sodium 138, Potassium 4.4, BUN 24 H, Creatinine 2.17 H, Glucose 138 H, Phosphorus 4.2, Magnesium 1.9 07/18/22 04:42: WBC 13.80 H D, Hgb 8.4 L, Hct 25.8 L, Plt Count 410 H 07/17/22 20:07: WBC 19.40 H, Hgb 9.3 L, Hct 28.2 L, Plt Count 434 H 07/17/22 20:07: Sodium 139, Potassium 4.7, BUN 23 H, Creatinine 2.19 H D, Glucose 149 H - Problems (1) Renal cell carcinoma Current Visit: Yes Status: Acute (2) Colon cancer Current Visit: Yes Status: Acute (3) S/P partial colectomy Current Visit: Yes Status: Acute (4) HTN (hypertension) Current Visit: Yes Status: Acute (5) ROSITA (acute kidney injury) Current Visit: Yes Status: Acute Conclusions/ Impression: Plan: 1. Management per General surgery 2. Strict blood pressure control 3. IV hydration; monitor renal function. s/p nephrectomy so most probably elevation in Cr transient 4. NGT to suction until flatus 5. Gi DVT prophylaxis
[2022-07-19] MEDS: HYDROMORPHONE HCL 1 MG/ML INJ IV PRN ×5 (01:39→23:49)
[2022-07-19] MEDS: NA CHLORIDE 0.9% 1,000 ML IV SCH ×4 (01:40→17:00)
[2022-07-19 04:38] LABS: Hematocrit 25.1 % (39.6-49.0); Lymphocytes % 10.1 % (15.3-44.8); MPV 6.8 fL (7.6-11.3); RBC Red Blood Cell Count 3.18 M/uL (4.33-5.43)
[2022-07-19 04:57] LABS: Potassium 3.8 mmol/L (3.5-5.1)
--- NOTE | 2022-07-19 06:19 | P.PN ---
Subjective Date of Service: 07/19/22 Subjective: No new changes, No C/O voiced, Improving Review of Systems 10-point ROS is otherwise unremarkable Physical Examination - Vital Signs Temperature: 98.1 F Blood Pressure: 114/70 Pulse: 56 Respirations: 18 Pulse Ox (%): 97 - Physical Exam General: Alert, In no apparent distress, Oriented x3 HEENT: Other (NGT) Cardiovascular: Regular rate/rhythm Neurological: Normal strength at 5/5 x4 extr - Studies Laboratory Data (last 24 hrs) 07/19/22 03:21: Sodium 142, Potassium 3.8, BUN 22 H, Creatinine 1.79 H, Glucose 99 07/19/22 03:21: WBC 9.50 D, Hgb 8.3 L, Hct 25.1 L, Plt Count 355 07/18/22 13:39: WBC 12.00 H, Hgb 8.0 L, Hct 24.3 L, Plt Count 372 Medications List Reviewed: Yes Assessment & Plan - Problems (Diagnosis) (1) Renal cell carcinoma Current Visit: Yes Status: Acute (2) Colon cancer Current Visit: Yes Status: Acute (3) S/P partial colectomy Current Visit: Yes Status: Acute (4) HTN (hypertension) Current Visit: Yes Status: Acute (5) ROSITA (acute kidney injury) Current Visit: Yes Status: Acute - Plan PLAN: 1. IV hydration; Cr trending downward. Allow for permissive HTN 2. Monitor H&H 3. NGT to suction; management per General surgery 4. Outpt oncology 5. Will follow along/will reengage if any worsening medical issues - Advance Directives Does patient have a Living Will: No Does patient have a Durable POA for Healthcare: No
[2022-07-19] MEDS: PANTOPRAZOLE 40 MG INJ IVP SCH (07:46)
[2022-07-19] MEDS: ENOXAPARIN 40 MG/0.4 ML SQ SCH (07:46)
--- NOTE | 2022-07-19 10:05 | P.PN ---
Date of Service: 07/19/22 Subjective: Patient is awake and alert. Patient had a bowel movement this morning and is passing gas. Objective: Vitals stable, afebrile. White count is 9.5 and hemoglobin is 8.3. Abdomen: Soft, nondistended, hypoactive bowel sounds with minimal incisional tenderness. Wound is clean dry and intact. Assessment: Status post left nephrectomy and segmental colon resection Plan: Patient is clinically stable and doing well. We will clamp the NG tube and allow patient to have sips of clear liquids. We will DC the Meadows. Patient may shower. Wound care instructions given. If the residuals are less than 50 cc, the NG tube can be removed. CC:
[2022-07-19] MEDS ORDERED: POTASSIUM 25 MEQ EFFERV TAB PO ONE (10:20)
[2022-07-19] MEDS: ZOLPIDEM TARTRATE 5 MG TABLET PO PRN (21:47)
[2022-07-20] MEDS: NA CHLORIDE 0.9% 1,000 ML IV SCH ×4 (02:54→09:48)
[2022-07-20 04:25] LABS: Absolute Lymphocytes (CBC) 1.3 K/uL (0.7-4.9); Hematocrit 24.6 % (39.6-49.0); Lymphocytes % 17.6 % (15.3-44.8); MCV 78.8 fL (80-100); MPV 6.4 fL (7.6-11.3); RBC Red Blood Cell Count 3.13 M/uL (4.33-5.43)
[2022-07-20 04:54] LABS: Magnesium 2.1 mg/dL (1.8-2.4); Phosphorus 1.9 mg/dL (2.5-4.9)
[2022-07-20] MEDS: POTASS/SODIUM PHOSPHATE 1 PKT POWD.PACK PO SCH ×3 (06:01→10:10)
[2022-07-20] MEDS: HYDROMORPHONE HCL 1 MG/ML INJ IV PRN (06:01)
[2022-07-20] MEDS: PANTOPRAZOLE 40 MG INJ IVP SCH (08:35)
[2022-07-20] MEDS: ENOXAPARIN 40 MG/0.4 ML SQ SCH (08:35)
--- NOTE | 2022-07-20 09:56 | P.PN ---
Date of Service: 07/20/22 Subjective: Patient is awake and alert. Patient had a bowel movement this morning and is passing gas. Patient is tolerating clear liquids. Patient is passing gas. Objective: Vitals stable, afebrile. Hemoglobin is 8.2. Abdomen: Soft, nondistended, positive bowel sounds with minimal incisional tenderness. Wound is clean dry and intact. Assessment: Status post left nephrectomy and segmental colon resection Plan: Patient is clinically stable and doing well. We will advance diet today to full liquids and if tolerated will go to GI soft. Decrease IV fluid to KVO. Hopefully discharge in the next day or 2. CC:
[2022-07-20] MEDS: HYDROCODONE/APAP 7.5/325 MG TAB PO PRN ×2 (13:27→19:50)
[2022-07-20] MEDS: ENSURE HIGH PROTEIN 237 ML CAN PO SCH (19:51)
[2022-07-20] MEDS: ZOLPIDEM TARTRATE 5 MG TABLET PO PRN (20:56)
[2022-07-20] MEDS ORDERED: ATORVASTATIN 10 MG TAB PO SCH (21:00)
[2022-07-21] MEDS: HYDROCODONE/APAP 7.5/325 MG TAB PO PRN ×2 (01:21→08:30)
[2022-07-21] MEDS: NA CHLORIDE 0.9% 1,000 ML IV SCH ×2 (01:21→01:48)
[2022-07-21 05:28] VITALS: O2SAT 97
[2022-07-21 06:18] LABS: Phosphorus 3.3 mg/dL (2.5-4.9); Potassium 3.8 mmol/L (3.5-5.1)
[2022-07-21] MEDS: ENOXAPARIN 40 MG/0.4 ML SQ SCH (08:24)
[2022-07-21] MEDS: PANTOPRAZOLE 40 MG INJ IVP SCH (08:24)
[2022-07-21] MEDS: ENSURE HIGH PROTEIN 237 ML CAN PO SCH (08:25)
[2022-07-21] MEDS ORDERED: DULOXETINE 20 MG CAP PO SCH (09:00)
[2022-07-21] MEDS ORDERED: LOSARTAN POTASSIUM 50 MG TABLET PO SCH (09:00)
[2022-07-21] MEDS ORDERED: POTASSIUM CL SA 10 MEQ TAB PO ONE (09:00)
[2022-07-21 09:43] VITALS: BP 137/83; TEMP 98.3
--- NOTE | 2022-07-22 06:37 | DS ---
Date of Discharge: 07/21/2022 Admitting Diagnoses: Left renal cell carcinoma and colon cancer. Discharge Diagnoses: Left renal cell carcinoma and colon cancer. Procedure Performed: Left nephrectomy by Dr. Stauffer and a segmental colon resection with primary an astomosis by me. Hospital Course: The patient is a 51-year-old gentleman who underwent the aforementioned procedures. Postoperatively, he was in the ICU. He did receive 1 unit of blood postoperatively. H and H came up appropriately, he maintained it, during the duration of his hospitalization and did not require an y further transfusions. As he was clinically stable, he was transferred to the floor on Wednesday and then had a bowel movement on Wednesday. NG tube was clamped. Diet was begun yesterday. The diet was then advanced. His laboratory data was as follows: His H and H remained stable. His pathology is p ending. He is ambulating and tolerating pain on p.o. pain medications. He is afebrile and he is hav ing bowel movements. Therefore, patient will be discharged to home. Disposition: Home. Condition: Stable. Discharge Instructions: Resume home medications and diet. Activity as tolerated. No heavy lifting. Follow up in my office in 1 week. Call for appointment. Follow with Dr. Stauffer' office in 1 to 2 weeks. Toutle 7.5, called in for pain and Colace 100 mg p.o. b.i.d. for constipation. Patient was encouraged to take iron pills that he has at home as well. /MODL Voice ID: [id number] Report ID: [id number]
== END 2022-07-21 09:36 | disposition home or self-care (01) | DRG 330 ==
LOC: OR 06:35 → 3RD-ICU 15:43 → 2ND 07-18 17:00
PROVIDERS: ADMIT Surgery; ATTEND Surgery
PROC: 30233N1 Transfusion of Nonautologous Red Blood Cells into Peripheral Vein, Percutaneous Approach (ICD-10-PCS; 2022-07-17)
PROC: 0DBL0ZZ Excision of Transverse Colon, Open Approach (ICD-10-PCS; principal; 2022-07-17 07:30)
PROC: 0TB14ZZ Excision of Left Kidney, Percutaneous Endoscopic Approach (ICD-10-PCS; 2022-07-17 07:30)
DX: C18.4 Malignant neoplasm of transverse colon (principal); N17.9 Acute kidney failure, unspecified; I10 Essential (primary) hypertension; E78.5 Hyperlipidemia, unspecified; K21.9 Gastro-esophageal reflux disease without esophagitis; N28.89 Other specified disorders of kidney and ureter; K57.30 Diverticulosis of large intestine without perforation or abscess without bleeding; Z87.891 Personal history of nicotine dependence; Z20.822 Contact with and (suspected) exposure to COVID-19
CPT/HCPCS: 36415; 71046; 80048; 81003; 83735; 84100; 85025; 85610; 85730; 86850; 86900; 86901; 87811; 88304; 88307; 88309; 93005; 94010; 97116; 97161; 97530; A4216; C9113; J0694; J1100; J1170; J1200; J1644; J1650; J2001; J2250; J2370; J2405; J2704; J2710; J3010; J7030; J7040; J7050; J7120; P9016

== ENCOUNTER 2023-03-31 07:24 | Day surgery (SDC) | payer BC ==
[2023-03-31] MEDS ORDERED: Ringers Lactate 1,000 ML IV ONE (07:47)
[2023-03-31] MEDS ORDERED: propofoL 200 MG/20 ML VIAL IV ONE ×2 (09:16→09:49)
[2023-03-31] MEDS ORDERED: LIDOCAINE 1% MPF 5 ML VIAL ONE (09:16)
[2023-03-31] MEDS ORDERED: GLYCOPYRROLATE 0.2 MG/ML SYR ONE (09:16)
[2023-03-31] MEDS ORDERED: ONDANSETRON 4 MG/2 ML VIAL ONE (09:16)
[2023-03-31 10:24] VITALS: TEMP 97.6; O2SAT 100
[2023-03-31 10:25] VITALS: BP 124/71
== END 2023-03-31 10:20 | disposition home or self-care (01) ==
LOC: OR 07:24
PROVIDERS: ATTEND Internal Medicine Gastroenterology
PROC: 0DBH8ZX Excision of Cecum, Via Natural or Artificial Opening Endoscopic, Diagnostic (ICD-10-PCS; principal; 2023-03-31 09:00)
DX: K92.1 Melena (principal); D50.9 Iron deficiency anemia, unspecified; K63.89 Other specified diseases of intestine; K64.8 Other hemorrhoids; K57.30 Diverticulosis of large intestine without perforation or abscess without bleeding; Z85.038 Personal history of other malignant neoplasm of large intestine; D12.0 Benign neoplasm of cecum; Z86.010 Personal history of colon polyps; Z80.0 Family history of malignant neoplasm of digestive organs
CPT/HCPCS: 45380; 88305; J2704 ×2; J2001; J2405; J7120

== ENCOUNTER 2024-02-05 12:14 | Emergency (ER) | payer BC ==
--- OUTSIDE RECORDS SUMMARY | 2024-02-05 12:17 | XMS REPORT | Continuity of Care Document ---
Author Name Unknown Address [address] [facility] [address] [place] [address] [facility] Address [address] [place] [address] Care Team Providers Care Automobile Accessories Installer Name Role Phone Pcp, Patient Does Not Have A Primary Care Physic wei Alexandro Quintero Attending Clinician Unavailable Anika Foster PA-C Attending Clinician ANIKA FOSTER Attending Clinician Unavailable Doctor Unassigned, [place] Attending Clinician U SARAH Sprague Attending Clinician Unavail ALFONSO Briceno Attending Clinician Unavailable Payers Payer Name Policy Type Policy Number Effective Date Expirati on Date Source [facility] 6 [id number] 2022 00:00:00 [facility] 6 [id number] 2020 00:00:00 [facility] Problems Condition Name Condition Details Condition Category Status Onset Date Resolution Date Last Treatment Date Treating Clinician Comments Source No known active problems No known active problems Disease [facility] [id number] Left renal mass Problem [facility] 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 Problem [facility] 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) Problem [facility] Malignant tumor of kidney Malignant neoplasm of left kidney, except renal pelvis Problem [facility] [id number] S/P laparoscop ic surgery Problem [facility] [id number] S/p nephrectom y Problem [facility] [id number] ALESSANDRO (generaliz ed anxiety disorder) Problem [facility] [id number] Premature ejaculatio n Problem [facility] [id number] Panic attacks Problem [facility] [id number] Garcia syndrome Problem [facility] [id number] Renal cell carcinoma of left kidney Problem [facility] [id number] Malignant neoplasm of splenic flexure Problem [facility] [id number] Hematochez ia Problem [facility] [id number] Lung nodule, multiple Problem [facility] Clear cell carcinoma of left kidney Clear cell carcinoma of left kidney Problem [facility] [id number] Malignant neoplasm of descending colon Problem [facility] [id number] Repetitive intrusions of sleep Problem [facility] [id number] Chewing tobacco nicotine dependence without complicati on Problem [facility] [id number] Peripheral polyneurop athy Problem [facility] [id number] GERD without esophagiti s Problem [facility] [id number] Dependence on other enabling machines and devices Problem [facility] [id number] Somnolence , daytime Problem [facility] [id number] Essential hypertensi on Problem [facility] [id number] Mixed hyperlipid emia Problem [facility] [id number] Obstructiv e sleep apnea (adult) (pediatric ) Problem [facility] Allergies, Adverse Reactions, Alerts Allergy Name Allergy Type Status Severity Reaction(s) Onset Date Inactive Date Treating Clinician Comments Source sulfamet hoxazole / trimetho prim sulfamet hoxazole / trimetho prim Active Unknown [facility] NO KNOWN ALLERGIE S Drug Class Active [facility] Social History Social Habit Start Date Stop Date Quantity Comments Source Exposure to SARS-CoV-2 (event) Not sure [facility] History of Tobacco Use [facility] Sex Assigned At [facility] Tobacco use and exposure 2021-08-10 00:00:00 2021-08-10 00:00:00 Never used [facility] Smoking Status Start Date Stop Date Source Unknown if ever smoked [facility] Never Smoker [facility] Current Smoker 2022-07-06 00:00:00 [facility] Medications Ordered Medication Name Filled Medication Name Start Date Stop Date Current Medication? Ordering Clinician Indication Dosage Frequency Signature (SIG) Comments Components Source ALPRAZolam 0.5 MG ALPRAZolam 0.5 MG 2022-11 2- 00:00: 00 No ALPRAZolam 0.5 MG ALPRAZolam 0.5 MG ALPRAZolam 0.5 MG 2022-11 2- 00:00: 00 No ALPRAZolam 0.5 MG ALPRAZolam 0.5 MG ALPRAZolam 0.5 MG 2022-11 2 00:00: 00 No ALPRAZolam 0.5 MG ALPRAZolam 0.5 MG ALPRAZolam 0.5 MG 2022-11 2- 00:00: 00 No ALPRAZolam 0.5 MG ALPRAZolam 0.5 MG ALPRAZolam 0.5 MG 2022-11 2- 00:00: 00 No ALPRAZolam 0.5 MG ALPRAZolam 0.5 MG ALPRAZolam 0.5 MG 2022-11 2- 00:00: 00 No ALPRAZolam 0.5 MG ALPRAZolam 0.5 MG ALPRAZolam 0.5 MG 2022-11 2- 00:00: 00 No ALPRAZolam 0.5 MG ALPRAZolam 0.5 MG ALPRAZolam 0.5 MG 2022-11 2- 00:00: 00 No ALPRAZolam 0.5 MG ALPRAZolam 0.5 MG ALPRAZolam 0.5 MG 2022-11 2- 00:00: 00 No ALPRAZolam 0.5 MG ALPRAZolam 0.5 MG ALPRAZolam 0.5 MG 2022-11 2-04 00:00: 00 No ALPRAZolam 0.5 MG ALPRAZolam 0.5 MG ALPRAZolam 0.5 MG 2022-11 2-04 00:00: 00 No ALPRAZolam 0.5 MG PARoxetine HCl 10 MG PARoxetine HCl 10 MG 2- 00:00: 00 No 1{table t_in_th e_ijeoma ng} QD PARoxetine HCl 10 MG cyclobenzap rine 10 mg tablet 2020-11 0- 00:00: 00 Yes [id number] 10mg Take 1 tablet by mouth 3 (three) times daily. [facility] ibuprofen 800 mg tablet 2020-11 0 00:00: 00 Yes [id number] 800mg Take 1 tablet by mouth 3 (three) times daily with meals. [facility] cyclobenzap rine 10 mg tablet 2020-11 0 00:00: 00 Yes [id number] 10mg Take 1 tablet by mouth 3 (three) times daily. [facility] 2020-11 0 00:00: 00 Yes [id number] 800mg Take 1 tablet by mouth 3 (three) times daily with meals. [facility] omeprazole 40 mg capsule 2020-0 07-29 00:00: 00 Yes [facility] omeprazole 40 mg capsule 2020-0 07-29 00:00: 00 Yes [facility] losartan 100 mg tablet 2020-0 07-24 00:00: 00 Yes [facility] atorvastati n 10 mg tablet 2020-0 07-24 00:00: 00 Yes [facility] DULoxetine 60 mg capsule 2020-0 -16 00:00: 00 Yes [facility] losartan 100 mg tablet 2020-0 07-24 00:00: 00 Yes [facility] atorvastati n 10 mg tablet 2020-0 07-24 00:00: 00 Yes [facility] DULoxetine 60 mg capsule 2020-0 -16 00:00: 00 Yes [facility] Omeprazole 40 MG Omeprazole 40 MG 1-0 8-18 00:00: 00 No QD Omeprazole 40 MG Omeprazole 40 MG Omeprazole 40 MG No QD Omeprazole 40 MG Losartan Potassium 100 MG Losartan Potassium 100 MG No Losartan Potassium 100 MG DULoxetine HCl 60 MG DULoxetine HCl 60 MG No 1{capsu le} QD DULoxetine HCl 60 MG DULoxetine HCl 60 MG DULoxetine HCl 60 MG No DULoxetine HCl 60 MG Losartan Potassium 100 MG Losartan Potassium 100 MG No 1{table t} QD Losartan Potassium 100 MG Atorvastati n Calcium 10 MG Atorvastati n Calcium 10 MG No Atorvastat in Calcium 10 MG Atorvastati n Calcium 10 MG Atorvastati n Calcium 10 MG No 1{table t} QD Atorvastat in Calcium 10 MG Omeprazole 40 MG Omeprazole 40 MG No QD Omeprazole 40 MG Losartan Potassium 100 MG Losartan Potassium 100 MG No 1{table t} QD Losartan Potassium 100 MG Atorvastati n Calcium 10 MG Atorvastati n Calcium 10 MG No Atorvastat in Calcium 10 MG DULoxetine HCl 60 MG DULoxetine HCl 60 MG No DULoxetine HCl 60 MG Losartan Potassium 100 MG Losartan Potassium 100 MG No Losartan Potassium 100 MG Omeprazole 40 MG Omeprazole 40 MG No QD Omeprazole 40 MG Losartan Potassium 100 MG Losartan Potassium 100 MG No 1{table t} QD Losartan Potassium 100 MG Atorvastati n Calcium 10 MG Atorvastati n Calcium 10 MG No Atorvastat in Calcium 10 MG DULoxetine HCl 60 MG DULoxetine HCl 60 MG No DULoxetine HCl 60 MG Losartan Potassium 100 MG Losartan Potassium 100 MG No Losartan Potassium 100 MG Losartan Potassium 100 MG Losartan Potassium 100 MG No Losartan Potassium 100 MG Omeprazole 40 MG Omeprazole 40 MG No QD Omeprazole 40 MG Atorvastati n Calcium 10 MG Atorvastati n Calcium 10 MG No Atorvastat in Calcium 10 MG DULoxetine HCl 60 MG DULoxetine HCl 60 MG No DULoxetine HCl 60 MG Losartan Potassium 100 MG Losartan Potassium 100 MG No 1{table t} QD Losartan Potassium 100 MG Omeprazole 40 MG Omeprazole 40 MG No QD Omeprazole 40 MG DULoxetine HCl 60 MG DULoxetine HCl 60 MG No DULoxetine HCl 60 MG Atorvastati n Calcium 10 MG Atorvastati n Calcium 10 MG No Atorvastat in Calcium 10 MG Losartan Potassium 100 MG Losartan Potassium 100 MG No Losartan Potassium 100 MG DULoxetine HCl 60 MG DULoxetine HCl 60 MG No QD DULoxetine HCl 60 MG Omeprazole 40 MG Omeprazole 40 MG No QD Omeprazole 40 MG Atorvastati n Calcium 10 MG Atorvastati n Calcium 10 MG No Atorvastat in Calcium 10 MG Losartan Potassium 100 MG Losartan Potassium 100 MG No Losartan Potassium 100 MG DULoxetine HCl 60 MG DULoxetine HCl 60 MG No QD DULoxetine HCl 60 MG Omeprazole 40 MG Omeprazole 40 MG No QD Omeprazole 40 MG Atorvastati n Calcium 10 MG Atorvastati n Calcium 10 MG No QD Atorvastat in Calcium 10 MG Losartan Potassium 100 MG Losartan Potassium 100 MG No Losartan Potassium 100 MG Atorvastati n Calcium 10 MG Atorvastati n Calcium 10 MG No 1{table t} QD Atorvastat in Calcium 10 MG Losartan Potassium 100 MG Losartan Potassium 100 MG No Losartan Potassium 100 MG DULoxetine HCl 60 MG DULoxetine HCl 60 MG No QD DULoxetine HCl 60 MG Losartan Potassium 100 MG Losartan Potassium 100 MG No 1{table t} QD Losartan Potassium 100 MG DULoxetine HCl 60 MG DULoxetine HCl 60 MG No 1{capsu le} QD DULoxetine HCl 60 MG Omeprazole 40 MG Omeprazole 40 MG No QD Omeprazole 40 MG Atorvastati n Calcium 10 MG Atorvastati n Calcium 10 MG No QD Atorvastat in Calcium 10 MG Atorvastati n Calcium 20 MG Atorvastati n Calcium 20 MG No 1{table t} QD Atorvastat in Calcium 20 MG ALPRAZolam 0.5 MG ALPRAZolam 0.5 MG No ALPRAZolam 0.5 MG Atorvastati n Calcium 10 MG Atorvastati n Calcium 10 MG No Atorvastat in Calcium 10 MG DULoxetine HCl 60 MG DULoxetine HCl 60 MG No 1{capsu le} QD DULoxetine HCl 60 MG Losartan Potassium 100 MG Losartan Potassium 100 MG No 1{table t} QD Losartan Potassium 100 MG Losartan Potassium 100 MG Losartan Potassium 100 MG No Losartan Potassium 100 MG Omeprazole 40 MG Omeprazole 40 MG No QD Omeprazole 40 MG Losartan Potassium 100 MG Losartan Potassium 100 MG No 1{table t} QD Losartan Potassium 100 MG ALPRAZolam 0.5 MG ALPRAZolam 0.5 MG No ALPRAZolam 0.5 MG Losartan Potassium 100 MG Losartan Potassium 100 MG No Losartan Potassium 100 MG Atorvastati n Calcium 20 MG Atorvastati n Calcium 20 MG No 1{table t} QD Atorvastat in Calcium 20 MG Atorvastati n Calcium 10 MG Atorvastati n Calcium 10 MG No Atorvastat in Calcium 10 MG DULoxetine HCl 60 MG DULoxetine HCl 60 MG No 1{capsu le} QD DULoxetine HCl 60 MG Omeprazole 40 MG Omeprazole 40 MG No QD Omeprazole 40 MG Atorvastati n Calcium 20 MG Atorvastati n Calcium 20 MG No 1{table t} QD Atorvastat in Calcium 20 MG Omeprazole 40 MG Omeprazole 40 MG No QD Omeprazole 40 MG DULoxetine HCl 60 MG DULoxetine HCl 60 MG No 1{capsu le} QD DULoxetine HCl 60 MG Losartan Potassium 100 MG Losartan Potassium 100 MG No Losartan Potassium 100 MG Atorvastati n Calcium 20 MG Atorvastati n Calcium 20 MG No 1{table t} QD Atorvastat in Calcium 20 MG Omeprazole 40 MG Omeprazole 40 MG No QD Omeprazole 40 MG DULoxetine HCl 60 MG DULoxetine HCl 60 MG No 1{capsu le} QD DULoxetine HCl 60 MG Losartan Potassium 100 MG Losartan Potassium 100 MG No Losartan Potassium 100 MG Atorvastati n Calcium 20 MG Atorvastati n Calcium 20 MG No 1{table t} QD Atorvastat in Calcium 20 MG Omeprazole 40 MG Omeprazole 40 MG No QD Omeprazole 40 MG DULoxetine HCl 60 MG DULoxetine HCl 60 MG No 1{capsu le} QD DULoxetine HCl 60 MG Losartan Potassium 100 MG Losartan Potassium 100 MG No Losartan Potassium 100 MG Atorvastati n Calcium 20 MG Atorvastati n Calcium 20 MG No 1{table t} QD Atorvastat in Calcium 20 MG Omeprazole 40 MG Omeprazole 40 MG No QD Omeprazole 40 MG DULoxetine HCl 60 MG DULoxetine HCl 60 MG No 1{capsu le} QD DULoxetine HCl 60 MG Losartan Potassium 100 MG Losartan Potassium 100 MG No Losartan Potassium 100 MG Atorvastati n Calcium 20 MG Atorvastati n Calcium 20 MG No 1{table t} QD Atorvastat in Calcium 20 MG Omeprazole 40 MG Omeprazole 40 MG No QD Omeprazole 40 MG DULoxetine HCl 60 MG DULoxetine HCl 60 MG No 1{capsu le} QD DULoxetine HCl 60 MG Losartan Potassium 100 MG Losartan Potassium 100 MG No Losartan Potassium 100 MG Atorvastati n Calcium 20 MG Atorvastati n Calcium 20 MG No 1{table t} QD Atorvastat in Calcium 20 MG Omeprazole 40 MG Omeprazole 40 MG No QD Omeprazole 40 MG DULoxetine HCl 60 MG DULoxetine HCl 60 MG No 1{capsu le} QD DULoxetine HCl 60 MG Losartan Potassium 100 MG Losartan Potassium 100 MG No Losartan Potassium 100 MG DULoxetine HCl 60 MG DULoxetine HCl 60 MG No 1{capsu le} QD DULoxetine HCl 60 MG Omeprazole 40 MG Omeprazole 40 MG No QD Omeprazole 40 MG Losartan Potassium 100 MG Losartan Potassium 100 MG No Losartan Potassium 100 MG Atorvastati n Calcium 20 MG Atorvastati n Calcium 20 MG No 1{table t} QD Atorvastat in Calcium 20 MG DULoxetine HCl 60 MG DULoxetine HCl 60 MG No 1{capsu le} QD DULoxetine HCl 60 MG Omeprazole 40 MG Omeprazole 40 MG No QD Omeprazole 40 MG Losartan Potassium 100 MG Losartan Potassium 100 MG No Losartan Potassium 100 MG Atorvastati n Calcium 20 MG Atorvastati n Calcium 20 MG No 1{table t} QD Atorvastat in Calcium 20 MG DULoxetine HCl 60 MG DULoxetine HCl 60 MG No 1{capsu le} QD DULoxetine HCl 60 MG Omeprazole 40 MG Omeprazole 40 MG No QD Omeprazole 40 MG Losartan Potassium 100 MG Losartan Potassium 100 MG No Losartan Potassium 100 MG Atorvastati n Calcium 20 MG Atorvastati n Calcium 20 MG No 1{table t} QD Atorvastat in Calcium 20 MG DULoxetine HCl 60 MG DULoxetine HCl 60 MG No 1{capsu le} QD DULoxetine HCl 60 MG Omeprazole 40 MG Omeprazole 40 MG No QD Omeprazole 40 MG Losartan Potassium 100 MG Losartan Potassium 100 MG No Losartan Potassium 100 MG Atorvastati n Calcium 20 MG Atorvastati n Calcium 20 MG No 1{table t} QD Atorvastat in Calcium 20 MG DULoxetine HCl 60 MG DULoxetine HCl 60 MG No 1{capsu le} QD DULoxetine HCl 60 MG Omeprazole 40 MG Omeprazole 40 MG No QD Omeprazole 40 MG Losartan Potassium 100 MG Losartan Potassium 100 MG No Losartan Potassium 100 MG Atorvastati n Calcium 20 MG Atorvastati n Calcium 20 MG No 1{table t} QD Atorvastat in Calcium 20 MG ALPRAZolam 0.5 MG ALPRAZolam 0.5 MG No ALPRAZolam 0.5 MG Losartan Potassium 100 MG Losartan Potassium 100 MG No 1{table t} QD Losartan Potassium 100 MG DULoxetine HCl 60 MG DULoxetine HCl 60 MG No 1{capsu le} QD DULoxetine HCl 60 MG Omeprazole 40 MG Omeprazole 40 MG No QD Omeprazole 40 MG Atorvastati n Calcium 20 MG Atorvastati n Calcium 20 MG No 1{table t} QD Atorvastat in Calcium 20 MG ALPRAZolam 0.5 MG ALPRAZolam 0.5 MG No ALPRAZolam 0.5 MG Losartan Potassium 100 MG Losartan Potassium 100 MG No 1{table t} QD Losartan Potassium 100 MG DULoxetine HCl 60 MG DULoxetine HCl 60 MG No 1{capsu le} QD DULoxetine HCl 60 MG Omeprazole 40 MG Omeprazole 40 MG No QD Omeprazole 40 MG Atorvastati n Calcium 20 MG Atorvastati n Calcium 20 MG No 1{table t} QD Atorvastat in Calcium 20 MG DULoxetine HCl 60 MG DULoxetine HCl 60 MG No 1{capsu le} QD DULoxetine HCl 60 MG Atorvastati n Calcium 10 MG Atorvastati n Calcium 10 MG No 1{table t} QD Atorvastat in Calcium 10 MG Losartan Potassium 100 MG Losartan Potassium 100 MG No 1{table t} QD Losartan Potassium 100 MG Omeprazole 40 MG Omeprazole 40 MG No QD Omeprazole 40 MG Losartan Potassium 100 MG Losartan Potassium 100 MG No 1{table t} QD Losartan Potassium 100 MG DULoxetine HCl 60 MG DULoxetine HCl 60 MG No 1{capsu le} QD DULoxetine HCl 60 MG Atorvastati n Calcium 10 MG Atorvastati n Calcium 10 MG No 1{table t} QD Atorvastat in Calcium 10 MG Atorvastati n Calcium 10 MG Atorvastati n Calcium 10 MG No 1{table t} QD Atorvastat in Calcium 10 MG Losartan Potassium 100 MG Losartan Potassium 100 MG No 1{table t} QD Losartan Potassium 100 MG Atorvastati n Calcium 10 MG Atorvastati n Calcium 10 MG No Atorvastat in Calcium 10 MG DULoxetine HCl 60 MG DULoxetine HCl 60 MG No 1{capsu le} QD DULoxetine HCl 60 MG Losartan Potassium 100 MG Losartan Potassium 100 MG No 1{table t} QD Losartan Potassium 100 MG DULoxetine HCl 60 MG DULoxetine HCl 60 MG No DULoxetine HCl 60 MG Omeprazole 40 MG Omeprazole 40 MG No QD Omeprazole 40 MG Omeprazole 40 MG Omeprazole 40 MG No QD Omeprazole 40 MG Atorvastati n Calcium 10 MG Atorvastati n Calcium 10 MG No Atorvastat in Calcium 10 MG DULoxetine HCl 60 MG DULoxetine HCl 60 MG No DULoxetine HCl 60 MG Losartan Potassium 100 MG Losartan Potassium 100 MG No Losartan Potassium 100 MG Omeprazole 40 MG Omeprazole 40 MG No QD Omeprazole 40 MG Losartan Potassium 100 MG Losartan Potassium 100 MG No Losartan Potassium 100 MG DULoxetine HCl 60 MG DULoxetine HCl 60 MG No 1{capsu le} QD DULoxetine HCl 60 MG DULoxetine HCl 60 MG DULoxetine HCl 60 MG No DULoxetine HCl 60 MG Losartan Potassium 100 MG Losartan Potassium 100 MG No 1{table t} QD Losartan Potassium 100 MG Atorvastati n Calcium 10 MG Atorvastati n Calcium 10 MG No Atorvastat in Calcium 10 MG Atorvastati n Calcium 10 MG Atorvastati n Calcium 10 MG No 1{table t} QD Atorvastat in Calcium 10 MG Vital Signs Vital Name Observation Time Observation Value Comments S ource height 2024-01-12 08:10:00 74 [in_i] Commo n [facility] weight 2024-01-12 08:10:00 [facility]:10:00 97.4 [degF] Com mon [facility] bmi 2024-01-12 08:10:00 25.03 kg/m2 Comm on [facility] oximetry 2024-01-12 08:10:00 99 % Commo n [facility] respiratory rate 2024-01-12 08:10:00 18 /min [facility] blood pressure systolic 2024-01-12 08:10:00 124 mm[Hg] Common [facility] blood pressure diastolic 2024-01-12 08:10:00 69 mm[Hg] Common [facility] height 2023-08-19 08:15:00 74 [in_i] Commo n [facility] weight 2023-08-19 08:15:00 187.6 [lb_av] Co mmon [facility] temperature 2023-08-19 08:15:00 97.7 [degF] Com mon [facility] bmi 2023-08-19 08:15:00 24.08 kg/m2 Comm on [facility] oximetry 2023-08-19 08:15:00 99 % Commo n [facility] respiratory rate 2023-08-19 08:15:00 18 /min Common [facility] blood pressure systolic 2023-08-19 08:15:00 130 mm[Hg] [facility] blood pressure diastolic 2023-08-19 08:15:00 90 mm[Hg] [facility] height 2023-07-27 15:20:00 74 [in_i] Commo n [facility] weight 2023-07-27 15:20:00 185 [lb_av] Comm on [facility] temperature 2023-07-27 15:20:00 98.1 [degF] Com mon [facility] bmi 2023-07-27 15:20:00 23.75 kg/m2 Comm on [facility] oximetry 2023-07-27 15:20:00 99 % Commo n [facility] respiratory rate 2023-07-27 15:20:00 18 /min Common [facility] blood pressure systolic 2023-07-27 15:20:00 130 mm[Hg] Common [facility] blood pressure diastolic 2023-07-27 15:20:00 76 mm[Hg] [facility] height 2023-02-18 15:15:00 74 [in_i] Commo n [facility] weight 2023-02-18 15:15:00 183 [lb_av] Comm on [facility] temperature 2023-02-18 15:15:00 98 [degF] Comm on [facility] bmi 2023-02-18 15:15:00 23.49 kg/m2 Comm on [facility] oximetry 2023-02-18 15:15:00 99 % Commo n [facility] respiratory rate 2023-02-18 15:15:00 18 /min Common [facility] blood pressure systolic 2023-02-18 15:15:00 122 mm[Hg] [facility] blood pressure diastolic 2023-02-18 15:15:00 69 mm[Hg] [facility] height 2023-01-14 08:00:00 74 [in_i] Commo n [facility] weight 2023-01-14 08:00:00 185 [lb_av] Comm on [facility] temperature 2023-01-14 08:00:00 98 [degF] Comm on [facility] bmi 2023-01-14 08:00:00 23.75 kg/m2 Comm on [facility] blood pressure systolic 2023-01-14 08:00:00 128 mm[Hg] [facility] blood pressure diastolic 2023-01-14 08:00:00 70 mm[Hg] [facility] height 2022-12-10 09:40:00 74 [in_i] Commo n [facility] weight 2022-12-10 09:40:00 185.6 [lb_av] Co mmon [facility] temperature 2022-12-10 09:40:00 97.3 [degF] Com mon [facility] bmi 2022-12-10 09:40:00 23.83 kg/m2 Comm on [facility] oximetry 2022-12-10 09:40:00 98 % Commo n [facility] respiratory rate 2022-12-10 09:40:00 18 /min [facility] blood pressure systolic 2022-12-10 09:40:00 128 mm[Hg] [facility] blood pressure diastolic 2022-12-10 09:40:00 72 mm[Hg] Common [facility] height 2022-08-20 16:30:00 74 [in_i] Commo n [facility] weight 2022-08-20 16:30:00 167.4 [lb_av] Co [facility] temperature 2022-08-20 16:30:00 98.3 [degF] Com mon [facility] bmi 2022-08-20 16:30:00 21.49 kg/m2 Comm on [facility] oximetry 2022-08-20 16:30:00 98 % Commo n [facility] respiratory rate 2022-08-20 16:30:00 18 /min [facility] blood pressure systolic 2022-08-20 16:30:00 139 mm[Hg] [facility] blood pressure diastolic 2022-08-20 16:30:00 78 mm[Hg] [facility] height 2022-07-09 17:00:00 74 [in_i] Commo n [facility] weight 2022-07-09 17:00:00 168.6 [lb_av] Co [facility] temperature 2022-07-09 17:00:00 99.4 [degF] Com mon [facility] bmi 2022-07-09 17:00:00 21.64 kg/m2 Comm on [facility] oximetry 2022-07-09 17:00:00 99 % Commo n [facility] respiratory rate 2022-07-09 17:00:00 18 /min Common [facility] blood pressure systolic 2022-07-09 17:00:00 124 mm[Hg] [facility] blood pressure diastolic 2022-07-09 17:00:00 74 mm[Hg] Common [facility] height 2022-07-06 15:20:00 74 [in_i] Commo n [facility] weight 2022-07-06 15:20:00 180 [lb_av] Comm on [facility] bmi 2022-07-06 15:20:00 23.11 kg/m2 Comm on [facility] height 2022-06-11 14:20:00 74 [in_i] Commo n [facility] weight 2022-06-11 14:20:00 180 [lb_av] Comm on [facility] temperature 2022-06-11 14:20:00 98 [degF] Comm on [facility] bmi 2022-06-11 14:20:00 23.11 kg/m2 Comm on [facility] blood pressure systolic 2022-06-11 14:20:00 135 mm[Hg] Common [facility] blood pressure diastolic 2022-06-11 14:20:00 75 mm[Hg] Common [facility] height 2021-12-23 16:30:00 74 [in_i] Commo n [facility] weight 2021-12-23 16:30:00 163.2 [lb_av] Co mmon [facility] temperature 2021-12-23 16:30:00 97.9 [degF] Com mon [facility] bmi 2021-12-23 16:30:00 20.95 kg/m2 Comm on [facility] oximetry 2021-12-23 16:30:00 99 % Commo n [facility] respiratory rate 2021-12-23 16:30:00 18 /min Common [facility] blood pressure systolic 2021-12-23 16:30:00 132 mm[Hg] [facility] blood pressure diastolic 2021-12-23 16:30:00 85 mm[Hg] [facility] Systolic blood pressure 2021-08-10 14:27:00 134 mm[Hg] [facility] Diastolic blood pressure 2021-08-10 14:27:00 90 mm[Hg] [facility] Heart rate 2021-08-10 14:27:00 87 /min [facility] Body temperature 2021-08-10 14:27:00 37.06 Cori [facility] Respiratory rate 2021-08-10 14:27:00 16 /min [facility] Body height 2021-08-10 14:27:00 185.4 cm [facility] Body weight 2021-08-10 14:27:00 81.647 kg [facility] BMI 2021-08-10 14:27:00 23.75 kg/m2 [facility] Oxygen saturation in Arterial blood by Pulse oximetry 2021-08-10 14:27:00 100 /min [place] [facility] Procedures Procedure Date / Time Performed Performing Clinicia n Source ASSIGNMENT OF BENEFITS 2021-08-10 14:08:31 Docto r Unassigned, [place] [facility] Encounters Start Date/Time End Date/Time Encounter Type Admission Type Attending Clinicians Care Facility Care Department Encounter ID Source 2022-12-10 09:44:02 Outpatient Quintero, [facility] [id number] [facility] 2022-12-09 10:31:01 Outpatient Quintero, [facility] [id number] [facility] 2022-08-11 09:44:00 Outpatient Quintero, [facility] [id number] [facility] 2022-07-15 13:52:01 Outpatient Quintero, [facility] [id number] [facility] 2022-07-09 17:50:00 Outpatient Quintero, Alexandro [facility] ST[facility] [id number] [facility] 2021-12-03 13:39:16 Outpatient Quintero, [facility] [id number] [facility] 2021-12-03 12:54:16 Outpatient Quintero, [facility] STL[facility] [id number] [facility] 2021-12-03 12:52:59 Outpatient QuinteroTrevorh STLMLC STLMLC [id number] [facility] 2021-12-03 12:41:27 Outpatient QuinteroTrevorh STLMLC STLMLC [id number] [facility] 2024-01-12 00:00:00 2024-01-12 00:00:00 (WELLNESS) Wellness Visit STLMLC STLMLC [id number] [facility] 2024-01-12 00:00:00 2024-01-12 00:00:00 (TEL) STLMLC STLMLC [id number] [facility] 2023-11-17 00:00:00 2023-11-17 00:00:00 (TEL) STLMLC STLMLC [id number] [facility] 2023-11-15 00:00:00 2023-11-15 00:00:00 (TEL) STLMLC STLMLC [id number] [facility] 2023-11-03 00:00:00 2023-11-03 00:00:00 (TEL) STLMLC STLMLC [id number] [facility] 2023-11-03 00:00:00 2023-11-03 00:00:00 (TEL) STLMLC STLMLC [id number] [facility] 2023-10-11 00:00:00 2023-10-11 00:00:00 (TEL) STLMLC STLMLC [id number] [facility] 2023-08-19 00:00:00 2023-08-19 00:00:00 OFFICE VISIT ESTAB PT LEVEL 3 STLMLC STLMLC [id number] [facility] 2023-07-27 00:00:00 2023-07-27 00:00:00 OFFICE VISIT ESTAB PT LEVEL 4 STLMLC STLMLC [id number] [facility] 2023-07-26 00:00:00 2023-07-26 00:00:00 (TEL) STLMLC STLMLC [id number] [facility] 2023-07-20 00:00:00 2023-07-20 00:00:00 (TEL) STLMLC STLMLC [id number] [facility] 2023-06-22 00:00:00 2023-06-22 00:00:00 (TEL) STLMLC STLMLC [id number] [facility] 2023-05-21 00:00:00 2023-05-21 00:00:00 (TEL) STLMLC STLMLC [id number] [facility] 2023-02-18 00:00:00 2023-02-18 00:00:00 OFFICE VISIT ESTAB PT LEVEL 4 STLMLC STLMLC [id number] [facility] 2023-01-14 00:00:00 2023-01-14 00:00:00 OFFICE VISIT ESTAB PT LEVEL 4 STLMLC STLMLC [id number] [facility] 2022-12-10 00:00:00 2022-12-10 00:00:00 (WELLNESS) Wellness Visit STLMLC STLMLC [id number] [facility] 2022-11-25 00:00:00 2022-11-25 00:00:00 (TEL) STLMLC STLMLC [id number] [facility] 2022-09-23 00:00:00 2022-09-23 00:00:00 (TEL) STLMLC STLMLC [id number] [facility] 2022-08-20 00:00:00 2022-08-20 00:00:00 Postop visit STLMLC STLMLC [id number] [facility] 2022-07-09 00:00:00 2022-07-09 00:00:00 OFFICE VISIT NEW PT LEVEL 4 STLMLC STLMLC [id number] [facility] 2022-07-06 00:00:00 2022-07-06 00:00:00 (TEL) STLMLC STLMLC [id number] [facility] 2022-07-06 00:00:00 2022-07-06 00:00:00 OFFICE VISIT EST PT LEVEL 3 STLMLC STLMLC [id number] [facility] 2022-06-11 00:00:00 2022-06-11 00:00:00 OFFICE VISIT ESTAB PT LEVEL 4 STLMLC STLMLC [id number] [facility] 2022-06-10 00:00:00 2022-06-10 00:00:00 (TEL) STLMLC STLMLC [id number] [facility] 2022-05-13 00:00:00 2022-05-13 00:00:00 (TEL) STLMLC STLMLC [id number] [facility] 2022-01-19 00:00:00 2022-01-19 00:00:00 (TEL) STLMLC STLMLC [id number] [facility] 2021-12-23 00:00:00 2021-12-23 00:00:00 PREV VISIT EST AGE 40-64 STLMLC STLMLC [id number] [facility] 2021-08-10 09:11:03 2021-08-10 09:51:28 Urgent Care Anika Foster [facility] [id number] [facility] 2021-08-10 09:40:00 2021-08-10 09:40:00 Outpatient [facility] [id number] [facility] 2021-08-10 00:00:00 2021-08-10 00:00:00 Orders Only Doctor Unassigned, [place] [facility] [id number] [facility] 2021-08-10 00:00:00 2021-08-10 00:00:00 Telephone Anika Foster [facility] [id number] [facility] 2021-07-29 00:00:00 2021-07-29 00:00:00 (TEL) STLMLC STLMLC [id number] [facility] 2021-06-25 00:00:00 2021-06-25 00:00:00 Outpatient STLMLC STLMLC [id number] [facility] 2021-03-31 00:00:00 2021-03-31 00:00:00 Outpatient STLMLC STLMLC [id number] [facility] 2021-03-26 00:00:00 2021-03-26 00:00:00 Outpatient STLMLC STLMLC [id number] [facility] 2021-03-08 09:10:00 2021-03-08 08:51:28 Outpatient SARAH BLANK [facility] [id number] [facility] 2021-02-25 00:00:00 2021-02-25 00:00:00 Outpatient STLMLC STLMLC [id number] [facility] 2021-02-15 09:20:00 2021-02-15 09:03:07 Outpatient ALFONSO OWENS [facility] [id number] [facility] 2021-02-04 00:00:00 2021-02-04 00:00:00 Outpatient STLMLC STLMLC [id number] [facility] 2021-01-22 00:00:00 2021-01-22 00:00:00 Outpatient STLMLC STLMLC [id number] [facility] Results Test Description Test Time Test Comments Results Result Co mments Source LIPID PANEL WITH REFLEX DIRECT [id number] 00:00:00* Test Item Value Reference Range Interpretation Comme nts CALC LDL CHOL (test code = 92455-4) 142 MG/DL See_Comment H [Automated messa ge] The system which generated this result transmitted reference range: <100 MG/DL. The reference range was not used to interpret this result as normal/abnormal. CHOLESTEROL (test code = 2093-3) 241 MG/DL See_Comment H [Automated messa ge] The system which generated this result transmitted reference range: <200 MG/DL. The reference range was not used to interpret this result as normal/abnormal. HDL CHOLESTEROL (test code = 2085-9) 73 MG/DL See_Comment [Automated messa ge] The system which generated this result transmitted reference range: >39 MG/DL. The reference range was not used to interpret this result as normal/abnormal. RISK RATIO LDL/HDL (test code = 20703-1) 1.95 RATIO See_Comment [Automated message] The system which generated this result transmitted reference range: <3.55 RATIO. The reference range was not used to interpret this result as normal/abnormal. TRIGLYCERIDES (test code = 2571-8) 133 MG/DL See_Comment [Automated messa ge] The system which generated this result transmitted reference range: <150 MG/DL. The reference range was not used to interpret this result as normal/abnormal. PATHOLOGIST SMEAR [id number] 00:00:00* Test Item Value Reference Range Interpretation Comme nts BASOPHILS (test code = 65627-0) 1.8 % DIAGNOSIS: (test code = 88830-6) (NOTE) COMMENTS (test code = 02722-4) (NOTE) EOSINOPHILS (test code = 70486-4) 3.5 % HEMATOCRIT (test code = 17720-0) 38.3 % See_Comment L [Automated messa ge] The system which generated this result transmitted reference range: 40.0-51.0 %. The reference range was not used to interpret this result as normal/abnormal. HEMOGLOBIN (test code = 718-7) 13.0 G/DL See_Comment L [Automated messa ge] The system which generated this result transmitted reference range: 13.5-17.0 G/DL. The reference range was not used to interpret this result as normal/abnormal. LYMPHOCYTES (test code = 24453-9) 40.7 % MCH (test code = 88674-6) 30.2 PG See_Comment [Automated messa ge] The system which generated this result transmitted reference range: 25.0-33.0 PG. The reference range was not used to interpret this result as normal/abnormal. MCHC (test code = 23660-0) 33.9 G/DL See_Comment [Automated messa ge] The system which generated this result transmitted reference range: 31.0-36.0 G/DL. The reference range was not used to interpret this result as normal/abnormal. MCV (test code = 28891-1) 89.1 fL See_Comment [Automated messa ge] The system which generated this result transmitted reference range: 80.0-99.0 fL. The reference range was not used to interpret this result as normal/abnormal. MICROSCOPIC DESCRIPTION: (test code = 19263-5) (NOTE) MONOCYTES (test code = 11867-6) 8.8 % NEUTROPHILS (test code = 56703-1) 45.2 % PATHOLOGIST: (test code = 22598-4) (NOTE) PLATELET COUNT (test code = 53537-7) 265 K/UL See_Comment [Automated messa ge] The system which generated this result transmitted reference range: 130-400 K/UL. The reference range was not used to interpret this result as normal/abnormal. RBC (test code = 30876-9) 4.30 M/UL See_Comment L [Automated messa ge] The system which generated this result transmitted reference range: 4.50-6.10 M/UL. The reference range was not used to interpret this result as normal/abnormal. RDW (test code = 63895-9) 12.2 % See_Comment [Automated messa ge] The system which generated this result transmitted reference range: 11.5-15.0 %. The reference range was not used to interpret this result as normal/abnormal. WBC (test code = 53066-4) 5.2 K/UL See_Comment [Automated messa ge] The system which generated this result transmitted reference range: 3.5-11.0 K/UL. The reference range was not used to interpret this result as normal/abnormal. COMPREHENSIVE METABOLIC [id number] 00:00:00* Test Item Value Reference Range Interpretation Comme nts ALBUMIN (test code = 1751-7) 5.1 G/DL See_Comment [Automated messa ge] The system which generated this result transmitted reference range: 3.5-5.2 G/DL. The reference range was not used to interpret this result as normal/abnormal. ALKALINE PHOSPHATASE (test code = 6768-6) 84 U/L See_Comment [Automated message] The system which generated this result transmitted reference range: 40-121 U/L. The reference range was not used to interpret this result as normal/abnormal. BILIRUBIN, TOTAL (test code = 1975-2) 0.3 MG/DL See_Comment [Automated message] The system which generated this result transmitted reference range: <=1.2 MG/DL. The reference range was not used to interpret this result as normal/abnormal. BUN (test code = 3094-0) 20 MG/DL See_Comment [Automated messa ge] The system which generated this result transmitted reference range: 6-20 MG/DL. The reference range was not used to interpret this result as normal/abnormal. CALCIUM (test code = 03550-1) 10.0 MG/DL See_Comment [Automated messa ge] The system which generated this result transmitted reference range: 8.5-10.5 MG/DL. The reference range was not used to interpret this result as normal/abnormal. CALC A/G RATIO (test code = 1759-0) 2.0 RATIO See_Comment [Automated messa ge] The system which generated this result transmitted reference range: 1.0-2.6 RATIO. The reference range was not used to interpret this result as normal/abnormal. CALC BUN/CREAT (test code = 3097-3) 19 RATIO See_Comment [Automated messa ge] The system which generated this result transmitted reference range: 6-28 RATIO. The reference range was not used to interpret this result as normal/abnormal. CALC GLOBULIN (test code = 68063-2) 2.5 G/DL See_Comment [Automated messa ge] The system which generated this result transmitted reference range: 1.9-3.7 G/DL. The reference range was not used to interpret this result as normal/abnormal. CARBON DIOXIDE (test code = 1963-8) 27 MEQ/L See_Comment [Automated messa ge] The system which generated this result transmitted reference range: 19-31 MEQ/L. The reference range was not used to interpret this result as normal/abnormal. CHLORIDE (test code = 2075-0) 103 MEQ/L See_Comment [Automated messa ge] The system which generated this result transmitted reference range: 95-107 MEQ/L. The reference range was not used to interpret this result as normal/abnormal. CREATININE (test code = 2160-0) 1.05 MG/DL See_Comment [Automated messa ge] The system which generated this result transmitted reference range: 0.80-1.40 MG/DL. The reference range was not used to interpret this result as normal/abnormal. eGFR (2020 CKD-EPI) (test code = 56274-3) 84 ML/MIN/1.73 See_Comment [Automated messa ge] The system which generated this result transmitted reference range: >60 ML/MIN/1.73. The reference range was not used to interpret this result as normal/abnormal. GLUCOSE (test code = 1558-6) 97 MG/DL See_Comment [Automated messa ge] The system which generated this result transmitted reference range: 70-99 MG/DL. The reference range was not used to interpret this result as normal/abnormal. POTASSIUM (test code = 2823-3) 4.6 MEQ/L See_Comment [Automated messa ge] The system which generated this result transmitted reference range: 3.5-5.4 MEQ/L. The reference range was not used to interpret this result as normal/abnormal. PROTEIN, TOTAL (test code = 2885-2) 7.6 G/DL See_Comment [Automated messa ge] The system which generated this result transmitted reference range: 6.1-8.3 G/DL. The reference range was not used to interpret this result as normal/abnormal. AST (test code = 1920-8) 22 U/L See_Comment [Automated messa ge] The system which generated this result transmitted reference range: 9-50 U/L. The reference range was not used to interpret this result as normal/abnormal. ALT (test code = 1742-6) 19 U/L See_Comment [Automated messa ge] The system which generated this result transmitted reference range: 5-50 U/L. The reference range was not used to interpret this result as normal/abnormal. SODIUM (test code = 2951-2) 142 MEQ/L See_Comment [Automated messa ge] The system which generated this result transmitted reference range: 133-146 MEQ/L. The reference range was not used to interpret this result as normal/abnormal. ColonoscopyColonoscopyColonoscopyColonoscopy
[2024-02-05] MEDS ORDERED: KETOROLAC 30 MG/ML INJ ONE (12:33)
[2024-02-05] MEDS ORDERED: HYDROCODONE/APAP 10/325 TAB ONE (12:33)
--- NOTE | 2024-02-05 13:49 | RAD REPORT ---
EXAM DESCRIPTION: CT - Thorax Wo Con - 02/05/2024 1:11 pm CLINICAL HISTORY: Right rib pain COMPARISON: February 2023 and 2021 TECHNIQUE: Computed axial tomography of the chest was obtained. Contrast was not requested. All CT scans are performed using dose optimization technique as appropriate and may include automated exposure control or mA/KV adjustment according to patient size. FINDINGS: The evaluation of mediastinum, reshma and vessels is limited secondary to lack of IV contras t administration. 5 millimeter nodule abuts the right minor fissure it is unchanged from 2021 likely benign. Additional tiny calcified and noncalcified lung nodules unchanged likely benign No mediastinal or hilar lymphadenopathy is seen. A pleural effusion is not present. No pericardial effusion No displaced rib fracture IMPRESSION: No acute abnormality displayed
--- NOTE | 2024-02-05 13:56 | EDPHYS ---
Physician Documentation [facility] Name: Les Heaton Age: 53 yrs Sex: Male : 1970 Arrival Date: 02/05/2024 Time: 12:14 Bed 2 Private MD: ED Physician Marco Hayes HPI: 02/04 12:30 This 53 yrs old Male presents to ER via Ambulatory with complaints of ribcage pain. sb4 12:30 Patient states he woke up this morning with pain in his right rib cage. He denies any sb4 known injury. He denies any recent coughing or other illness. Reports tenderness to palpation and with movement. Took Tylenol this morning without any improvement. Pain is now worse after playing golf. Historical: - Allergies: 12:22 sulfamethoxazole (bulk); ll1 12:27 Bactrim; as6 - PMHx: 12:22 Hypertensive disorder; Hypercholesterolemia; ll1 - PSHx: 12:27 colon; kidney; as6 - Immunization history:: Adult Immunizations up to date. - Social history:: Smoking status: Patient denies any tobacco usage or history of. ROS: 12:30 Constitutional: Negative for fever, chills, and weight loss, sb4 12:30 MS/extremity: Positive for pain, tenderness, of the right lateral anterior chest, 12:30 All other systems are negative, Exam: 12:30 Constitutional: This is a well developed, well nourished patient who is awake, alert, sb4 and in no acute distress. Head/Face: Normocephalic, atraumatic. Eyes: Extra-ocular motions intact. Periorbital areas with no swelling, redness, or edema. ENT: Mucous membranes moist. Cardiovascular: Regular rate and rhythm with a normal S1 and S2. Respiratory: Lungs have equal breath sounds bilaterally, clear to auscultation and percussion. No rales, rhonchi or wheezes noted. No increased work of breathing, no retractions or nasal flaring. Abdomen/GI: Soft, non-tender, no distension. Skin: Warm, dry with normal turgor. Normal color with no rashes, no lesions, and no evidence of cellulitis. MS/ Extremity: Pulses equal, no cyanosis. Neurovascular intact. Full, normal range of motion. Neuro: Awake and alert, GCS 15, oriented to person, place, time, and situation. Motor strength 5/5 in all extremities. Sensory grossly intact. 12:30 Chest/axilla: Inspection: normal, Palpation: tenderness, that is moderate, of the right eighth rib, right ninth rib, right seventh intercostal space and right eighth intercostal space, that totally reproduces the patient's complaints, Vital Signs: 12:24 BP 155 / 96; Pulse 67; Resp 17 S; Temp 97.7(TE); Pulse Ox 100% on R/A; Weight 88.45 kg as6 (R); Height 6 ft. 1 in. (R); Pain 9/10; 13:55 BP 156 / 88; Pulse 70; Resp 16; Pulse Ox 100% on R/A; mb9 12:24 Body Mass Index 25.73 (88.45 kg, 185.42 cm) as6 12:24 Pain Scale: Adult as6 MDM: 12:23 Patient medically screened. sb4 12:30 Differential diagnosis: Fracture, contusion, pneumothorax, cholelithiasis, sb4 cholecystitis. 13:54 Data reviewed: vital signs, nurses notes, radiologic studies, and as a result, I will sb4 discharge patient. Counseling: I had a detailed discussion with the patient and/or guardian regarding the historical points, exam findings, and any diagnostic results supporting the discharge/admit diagnosis, radiology results, to return to the emergency department if symptoms worsen or persist or if there are any questions or concerns that arise at home. 02/04 12:30 Order name: Chest Wo Con CT; Complete Time: 13:50 sb4 Administered Medications: 12:36 Drug: [place] PO 10 mg-325 mg 1 tabs PO once Route: PO; mb9 13:56 Follow up: Response: No adverse reaction mb9 12:37 Drug: Ketorolac IM 30 mg IM once Route: IM; Site: left deltoid; mb9 13:56 Follow up: Response: No adverse reaction mb9 14:03 Drug: Lidoderm Topical Patch 5 % (700 mg/patch) 1 patches Topical once; leave on for 12 ll1 hours; cover most painful area; may cut into smaller pieces Route: Topical; Site: affected area; 14:03 Follow up: Response: No adverse reaction ll1 Disposition: 14:51 I was immediately available on-site in the Emergency Department for consultation in the ms3 care of the patient. Disposition Summary: 02/05/24 13:55 Discharge Ordered Notes: Location: Home sb4 Problem: new sb4 Symptoms: have improved sb4 Condition: Stable sb4 Diagnosis - chest wall pain sb4 Followup: sb4 - With: Emergency Department - When: As needed - Reason: Trouble breathing, Worsening of condition Discharge Instructions: - Discharge Summary Sheet sb4 - Chest Wall Pain, Nggk-[id number] sb4 Forms: - Thank You Letter sb4 - Prescription Opioid Use sb4 - Patient Portal Instructions sb4 - Leadership Thank You Letter sb4 Prescriptions: - Lidoderm 5 % Topical adhesive patch, medicated - apply 1 package TOPICAL route per package directions leave on most painful area sb4 for up to 12 hrs; 20 unit; Refills: 0, Product Selection Permitted - acetaminophen-codeine 300-30 mg Oral tablet - take 1 tablet ORAL route every 6 hours as needed for pain; 15 tablet; Refills: sb4 0, Product Selection Permitted - Ibuprofen 800 mg Oral Tablet - take 1 tablet ORAL route every 8 hours As needed take with food; 30 tablet; sb4 Refills: 0, Product Selection Permitted Signatures: Dispatcher [employer] EDMS Rishi Bee RN RN ll1 Marco Hayes, DO ms3 Elpidio Butler RN RN as6 Huong Babin PA-C PA-C sb4 Gabbie Schulz RN RN mb9
--- NOTE | 2024-02-05 13:56 | ER ---
Nurse's Notes [facility] Name: Les Heaton Age: 53 yrs Sex: Male : 1970 Arrival Date: 02/05/2024 Time: 12:14 Bed 2 Private MD: Diagnosis: chest wall pain Presentation: 02/04 12:24 Chief complaint: Patient states: woke up with right sided stabbing rib pain. as6 Coronavirus screen: At this time, the client does not indicate any symptoms associated with coronavirus-19. Ebola Screen: No symptoms or risks identified at this time. Initial Sepsis Screen: Does the patient meet any 2 criteria? No. Patient's initial sepsis screen is negative. Does the patient have a suspected source of infection? No. Patient's initial sepsis screen is negative. Risk Assessment: Do you want to hurt yourself or someone else? Patient reports no desire to harm self or others. Onset of symptoms was February 05, 2024. 12:24 Acuity: YECENIA 3 as6 12:24 Method Of Arrival: Ambulatory as6 Triage Assessment: 12:27 General: Appears uncomfortable, Behavior is calm, cooperative. Pain: Complains of pain as6 in chest. Historical: - Allergies: 12:22 sulfamethoxazole (bulk); ll1 12:27 Bactrim; as6 - PMHx: 12:22 Hypertensive disorder; Hypercholesterolemia; ll1 - PSHx: 12:27 colon; kidney; as6 - Immunization history:: Adult Immunizations up to date. - Social history:: Smoking status: Patient denies any tobacco usage or history of. Screenin:27 [facility] ED Fall Risk Assessment (Adult) History of falling in the last 3 months, mb9 including since admission No falls in past 3 months (0 pts) Confusion or Disorientation No (0 pts) Intoxicated or Sedated No (0 pts) Impaired Gait No (0 pts) Mobility Assist Device Used No (0 pt) Altered Elimination No (0 pt) Score/Fall Risk Level 0 - 2 = Low Risk Oriented to surroundings, Maintained a safe environment, Educated pt \T\ family on fall prevention, incl call for assistance when getting out of bed. Abuse screen: Denies threats or abuse. Nutritional screening: No deficits noted. Tuberculosis screening: No symptoms or risk factors identified. Assessment: 12:26 General: Appears uncomfortable, Behavior is calm, cooperative. Pain: Complains of pain mb9 in right ribcage Pain does not radiate. Pain currently is 10 out of 10 on a pain scale. Quality of pain is described as sharp, shooting, Pain began suddenly, Aggravated by increased activity, repositioning. Neuro: Su Agitation-Sedation Scale (RASS): 0 - Alert and Calm Level of Consciousness is awake, alert, obeys commands, Oriented to person, place, time, situation, Appropriate for age. Cardiovascular: Denies chest pain, Patient's skin is warm and dry. Respiratory: Reports pain on inspiration Airway is patent Respiratory effort is even, unlabored, Respiratory pattern is regular, symmetrical. GI: Patient currently denies nausea, vomiting. : No signs and/or symptoms were reported regarding the genitourinary system. EENT: No signs and/or symptoms were reported regarding the EENT system. Derm: Skin is pink, warm \T\ dry. Musculoskeletal: Range of motion: intact in all extremities. 13:55 Reassessment: No changes from previously documented assessment. Patient and/or family mb9 updated on plan of care and expected duration. Pain level reassessed. Patient is alert, oriented x 3, equal unlabored respirations, skin warm/dry/pink. Vital Signs: 12:24 BP 155 / 96; Pulse 67; Resp 17 S; Temp 97.7(TE); Pulse Ox 100% on R/A; Weight 88.45 kg as6 (R); Height 6 ft. 1 in. (R); Pain 9/10; 13:55 BP 156 / 88; Pulse 70; Resp 16; Pulse Ox 100% on R/A; mb9 12:24 Body Mass Index 25.73 (88.45 kg, 185.42 cm) as6 12:24 Pain Scale: Adult as6 ED Course: 12:19 Patient arrived in ED. ra3 12:22 Gabbie Schulz RN is Primary Nurse. mb9 12:22 Arm band placed on Patient placed in an exam room, on a stretcher. ll1 12:22 Placed in gown. Bed in low position. Call light in reach. Side rails up X 1. Provided mb9 Education on: press call light if needing anything. Client placed on continuous cardiac and pulse oximetry monitoring. NIBP monitoring applied. athletic monitor on. Door closed. Noise minimized. Warm blanket given. 12:23 Huong Babin PA-C is PHCP. sb4 12:23 Marco Hayes DO is Attending Physician. sb4 12:27 Triage completed. as6 13:[address] In Process Unspecified. EDMS 13:56 No provider procedures requiring assistance completed. Patient did not have IV access mb9 during this emergency room visit. Administered Medications: 12:36 Drug: Waggoner PO 10 mg-325 mg 1 tabs PO once Route: PO; mb9 13:56 Follow up: Response: No adverse reaction mb9 12:37 Drug: Ketorolac IM 30 mg IM once Route: IM; Site: left deltoid; mb9 13:56 Follow up: Response: No adverse reaction mb9 14:03 Drug: Lidoderm Topical Patch 5 % (700 mg/patch) 1 patches Topical once; leave on for 12 ll1 hours; cover most painful area; may cut into smaller pieces Route: Topical; Site: affected area; 14:03 Follow up: Response: No adverse reaction ll1 Medication: 12:22 VIS not applicable for this client. mb9 Outcome: 13:55 Discharge ordered by MD. sb4 14:07 Discharged to home ambulatory, mb9 14:07 Condition: stable 14:07 Discharge instructions given to patient, family, Instructed on discharge instructions, follow up and referral plans. Demonstrated understanding of instructions, follow-up care, medications, Prescriptions given X 3, 14:07 Patient left the ED. mb9 Signatures: Dispatcher [employer] EDDC Rishi Bee RN RN ll1 Elpdiio Butler RN RN as6 Huong Babin PA-C PA-C sb4 Gabbie Schulz RN RN mb9 María Hayden 3
[2024-02-05] MEDS ORDERED: LIDOCAINE 4% PATCH ONE (13:57)
[2024-02-05 14:36] VITALS: BP 156/88; TEMP 97.7; O2SAT 100
== END 2024-02-05 14:07 | disposition home or self-care (01) ==
LOC: ER 12:14
DX: R07.89 Other chest pain (principal); I10 Essential (primary) hypertension; Z88.1 Allergy status to other antibiotic agents; Z88.2 Allergy status to sulfonamides
CPT/HCPCS: 71250; 96372; 99284; J2001